=== PATIENT | male | born 1940 | race Caucasian/White ===

== ENCOUNTER 2019-09-12 09:03 | Emergency (ER) | payer OTHER ==
[2019-09-12 09:42] LABS: Absolute Lymphocytes (CBC) 1.5 K/uL (0.7-4.9); Basophils % 0.1 % (0-1.3); Hematocrit 43.7 % (39.6-49.0); Lymphocytes % 18.7 % (15.3-44.8); MPV 8.8 fL (7.6-11.3); RBC Red Blood Cell Count 4.75 M/uL (4.33-5.43)
--- NOTE | 2019-09-12 09:48 | RAD REPORT ---
EXAM DESCRIPTION: RAD - Chest Single View - 09/12/2019 9:31 am CLINICAL HISTORY: CHEST PAIN, shortness of breath COMPARISON: None TECHNIQUE: AP portable chest image was obtained 09/12/2019 9:31 am . FINDINGS: Lung volumes are low. No mass, consolidation or edema pattern. Prominence of the interstit ial pattern is being believed to be baseline. Heart and vasculature are normal. No measurable pleural effusion and no pneumothorax. No acute bony abnormality seen. No acute aortic findings suspected. IMPRESSION: No acute cardiopulmonary process.
[2019-09-12 10:05] LABS: ALT/SGPT 25 U/L (12-78); AST/SGOT 19 U/L (15-37); Albumin 3.9 g/dL (3.4-5.0); Alkaline Phosphatase 39 U/L (45-117); BUN Blood Urea Nitrogen 14 mg/dL (7-18); Bicarbonate 27 mmol/L (21-32); Bilirubin Direct 0.2 mg/dL (0-0.2); Bilirubin Total 0.7 mg/dL (0.2-1.0); Glucose Level 102 mg/dL (74-106); Magnesium 2.2 mg/dL (1.8-2.4); NT PRO-BNP 39 pg/mL (<450); Protein, Total 7.7 g/dL (6.4-8.2); Protime INR 0.97; Sodium Level 138 mmol/L (136-145); Troponin (Emerg Dept Use Only) < 0.02 ng/mL (0.0-0.045)
--- OUTSIDE RECORDS SUMMARY | 2019-09-12 10:26 | XMS REPORT | Continuity of Care Document ---
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 Medical Group Allergic Problem Active 2018-07-26 Mem oria rhinitis 6-10 22:02:27 l (disorder) Allergic 00:00: He rmann rhinitis 00 (disorder) Active 08/20/2013 Problem 07/26/2018 Data migrated from vIPtela on 08/09/14. Medical Group DDC-COLONO Diagnosis Active 2010-032011-01-26 Memoria SCOPY - 09:50:00 l 00:00: Gio DDC-COLONO 00 SCOPY Active 01/12/2011 [facility] Transient Problem Resolve 2018-07-26 M emoria ischemic d 22:02:27 l attack Gio (disorder) Transient ischemic attack (disorder) Resolved Problem 07/26/2018 Medical Group Laceration Problem Active 2018-07-26 M emoria - injury 22:02:27 l (disorder) Trell n Laceration - injury (disorder) Active Problem 07/26/2018 Medical Group Mild Problem Active 2018-07-26 Memor ia cognitive 22:02:27 l disorder Mild [place] (disorder) cognitive disorder (disorder) Active Problem 07/26/2018 Medical Group Obesity Problem Active 2018-07-26 Bud divina (disorder) 22:02:27 l Obesity [place] (disorder) Active Problem 07/26/2018 Medical Group SCREEN Diagnosis Active 2011-01-26 Mem oria MALIG 09:50:00 l NEOP-COLON SCREEN Herm andreea MALIG NEOP-COLON Active [facility] Allergies, Adverse Reactions, Alerts This patient has no known allergies or adverse reactions. Social History Social Habit Start Date Stop Date Quantity Comments Source Social History 2015-10-05 2015-10-05 Claudette covington 20:59:36 20:59:36 Medications Ordered Filled Start Stop Current Ordering Indication Dosage Frequency Signature Comments Components Source Medication Medication Date Date Medication? Clinician (SIG) Name Name Clotrimazol Yes 1 appl, Mem oria e 10 MG/ML 4-25 TOP, BID, l Topical 15:43: Right ear Tessa nn Solution 00 canal, X 10 day, # 30 mL, 0 Refill(s), Pharmacy: [facility] fluconazole Yes 200 mg = 1 Memoria 200 mg oral 4-25 tab, PO, l tablet 15:43: Daily, X Gio 00 10 day, # 10 tab, 0 Refill(s), Pharmacy: [facility] Multi Yes 0 Memoria Vitamin+ 4-25 Refill(s) l 15:29: Gio 00 Amoxicillin 2018- Yes 875 mg = 1 Memoria 875 MG / 4-10 tab, PO, l Clavulanate 12:31: Q12H, X 10 [place] 125 MG Oral 00 day, # 20 Tablet tab, 0 [Augmentin Refill(s), 875-mg] Pharmacy: [facility] Vital Signs Vital Name Observation Time Observation Value Comments Source BMI Calculated 2018-07-24 14:52:00 [facility]an Weight 2018-07-24 14:52:00 [facility] Gio Height 2018-07-24 14:52:00 175.26 cm [facility] Gio Systolic (mm Hg) 2018-07-24 14:52:00 Bud rial [place] Diastolic (mm Hg) 2018-07-24 14:52:00 Mem orial [place] Temperature Oral (F) 2018-07-24 14:52:00 98.1 F [facility] Gio Heart Rate 2018-07-24 14:52:00 [facility] Weight 2018-07-05 15:19:00 [facility] Gio BMI Calculated 2018-07-05 15:19:00 Memori al Gio Height 2018-07-05 15:19:00 175.26 cm [facility] Gio Temperature Oral (F) 2018-07-05 15:19:00 98.4 F [facility] [place] Heart Rate 2018-07-05 15:19:00 [facility] [place] Systolic (mm Hg) 2018-07-05 15:19:00 Bud rial Gio Diastolic (mm Hg) 2018-07-05 15:19:00 Mem orial Gio Systolic (mm Hg) 2018-07-04 12:12:00 Bud rial [place] Diastolic (mm Hg) 2018-07-04 12:12:00 Mem orial [place] Heart Rate 2018-07-04 12:12:00 [facility] [place] Temperature Oral (F) 2018-07-04 12:12:00 98.5 F [facility] Gio Weight 2018-07-04 12:12:00 [facility] [place] Systolic (mm Hg) 2018-06-20 12:09:00 Bud rial [place] Diastolic (mm Hg) 2018-06-20 12:09:00 Mem orial Gio Heart Rate 2018-06-20 12:09:00 [facility] Gio Temperature Oral (F) 2018-06-20 12:09:00 98.3 F [facility] Weight 2018-06-20 12:09:00 [facility] [place] Procedures Procedure Date / Time Performed Performing Clinician [facility] e Removal impacted cerumen 2018-07-05 15:49:00 Mem orial [place] requiring instrumentation, unilateral 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<sup>1</sup> Encounters Start End Encounter Admission Attending Care Care Encounter Source Date/Time Date/Time Type Type Clinicians Facility Department ID 2019-08-30 2019-08-30 KIMBER Rueda [id number] 14:39:18 14:59:18 Visit Ed Jimenez [id number] [place] [id number] [facility] [id number] nal 092 [facility] 2018-07-24 2018-07-24 Outpatient Donepudi, [facility] [id number] 10:15:00 23:59:59 Daniella 04 [facility] 2018-07-05 2018-07-05 Outpatient Hopper, [facility]MG [facility] [id number] 10:30:00 23:59:59 [facility] 2018-07-05 2018-07-05 Outpatient Hopper, MHMG [facility] [id number] 10:30:00 23:59:59 [facility] 2018-07-04 2018-07-05 Outpatient MHMG [facility] [id number] 08:18:00 23:59:59 2018-07-04 2018-07-05 Outpatient MHMG [facility] [id number] 08:18:00 23:59:59 2018-07-04 2018-07-04 Outpatient Hopper, [facility]MG [facility] [id number] 07:15:00 23:59:59 Kirt 2018-06-20 2018-06-20 Outpatient Hopper, MH[facility] [id number] 07:00:00 23:59:59 Kirt Results This patient has no known results.
--- OUTSIDE RECORDS SUMMARY | 2019-09-12 10:26 | XMS REPORT | Continuity of Care Document ---
:1940 Author Organization [facility] Care Team Providers Name Role Phone [facility] Unavailable Un available Problems Problem Status Onset Classification Date Comments Sourc e Date Reported Impotence of Active 01/28/20 Problem 07/26/2018 Data migrated Medical organic origin 14 from [facility] (disorder) Centricity on 08/09/14. Allergic Active 08/21/19 Problem 07/26/2018 Data migrated Me dical rhinitis 14 from [facility] (disorder) Centricity on 08/09/14. DDC-COLONOSCOP [place]13[place] [address] [place] [address] Center Laceration - Active Problem 07/26/2018 Med ical injury Group (disorder) Mild cognitive Active Problem 07/26/2018 M edical disorder Group (disorder) Obesity Active Problem 07/26/2018 Medica l (disorder) Group Transient Resolved Problem 07/26/2018 Medica l ischemic Group attack (disorder) [place]IG [place] [facility] Medications Medication Details Route Status Patient Ordering Order Source Instructions Provider Date Clotrimazole 10 1 appl, Active MH MG/ML Topical TOP, BID, 019 Medical Solution Right ear Group canal, X 10 day, # 30 mL, 0 Refill(s), Pharmacy: [facility] 5246 fluconazole 200 200 mg = 1 Active MH mg oral tablet tab, PO, 019 Medical Daily, X 10 Group day, # 10 tab, 0 Refill(s), Pharmacy: [facility]246 Multi Vitamin+ 0 Refill(s) Active MH 019 Medical Group Amoxicillin 875 875 mg = 1 Active MH MG / tab, PO, 019 Medical Clavulanate 125 Q12H, X 10 Group MG Oral Tablet day, # 20 [Augmentin tab, 0 875-mg] Refill(s), Pharmacy: [facility] Allergies, Adverse Reactions, Alerts No Known Medication Allergies Immunizations Immunization Date Site Status Last Comments Source Given Updated diphtheria/pertu Left completed GE Result Medical ssis, 4 Deltoid Comment: Group acel/tetanus adacel adult<sup>1</sup [[id number]]. > Migrated from OBS ; Data migrated from iPipelinety on 04/14/2015. Results No Data Provided for This Section Pathology Reports No Data Provided for This Section Diagnostic Reports No Data Provided for This Section Consultation Notes No Data Provided for This Section Discharge Summaries No Data Provided for This Section History and Physicals No Data Provided for This Section Vital Signs Vital Sign Value Date Comments Source BMI Calculated 23.83 07/24/2018 Medical Gr oup Weight 73.182 07/24/2018 Medical Grou p Height 175.26 cm 07/24/2018 Medical Grou p Systolic (mm Hg) 130 07/24/2018 Medical Group Diastolic (mm Hg) 77 07/24/2018 Medical Group Temperature Oral (F) 98.1 F 07/24/2018 Medi kelly Group Heart Rate 72 07/24/2018 Medical Grou p Weight 72 07/05/2018 Medical Grou p BMI Calculated 23.44 07/05/2018 Medical Gr oup Height 175.26 cm 07/05/2018 Medical Grou p Temperature Oral (F) 98.4 F 07/05/2018 Medi kelly Group Heart Rate 70 07/05/2018 Medical Grou p Systolic (mm Hg) 124 07/05/2018 Medical Group Diastolic (mm Hg) 76 07/05/2018 Medical Group Systolic (mm Hg) 132 07/04/2018 Medical Group Diastolic (mm Hg) 84 07/04/2018 Medical Group Heart Rate 76 07/04/2018 Medical Grou p Temperature Oral (F) 98.5 F 07/04/2018 Medi kelly Group Weight 72.273 07/04/2018 Medical Grou p Systolic (mm Hg) 134 06/20/2018 Medical Group Diastolic (mm Hg) 77 06/20/2018 Medical Group Heart Rate 65 06/20/2018 Medical Grou p Temperature Oral (F) 98.3 F 06/20/2018 Medi kelly Group Weight 72.273 06/20/2018 Medical Grou p Encounters Location Location Encounter Encounter Reason Attending ADM DC Stat us Source Details Type Number For Provider Date Date Visit [facility] Outpatient [id number] DDQuita-COL HOANG 01/26 Acti ve [facility] Medical 0 ONOSCOP [facility] Outpatient [id number] [facility]20 [id number] 06/20 06/21 Medicine 1 [facility] [place] [facility] [id number] [facility] 07/04 Active [facility] 2 [facility] Family Outpatient [id number] [facility] 07/04 07/05 Medicine 2 [facility] [place] [facility] Family Phone [id number] 07/04 07/06 Medicine Message [id number] [facility] 3 [facility] Outpatient [id number] [facility] 07/05 07/06 Otolaryngol 3 Medic al [facility] Outpatient [id number] Sreekrishna 07/24 Act reji [facility] 4 [facility] Outpatient [id number] Sreekrishna 07/24 07/25 Otolaryngol 4 Med ical ogy [facility] Procedures Procedure Code Date Perfomer Comments Source Removal impacted 47745 07/05/2018 Medic al cerumen requiring Group instrumentation, unilateral Excision of [id number] X2 Medical squamous cell Group carcinoma<sup>1</ sup> Assessment and Plan No Data Provided for This Section Plan of Care No Data Provided for This Section Social History Social History Date Source Social History TypeResponse 10/05/2015 Medical [facility] Substance Abuse Use: None. 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 Highest education level: Some college. Alcohol Current, Type Liquor. Frequency: 1-2 ti mes per year. Alcohol use interferes with work or home: No. Drinks more than intended: No. Others hurt by drinking: No. Household alcohol concerns: No. Smoking Status Never smoker; Exposure to Tobacco Smoke None; Cigarette Smoking Last 365 Days No; Reg Smoking Cessation Counseling No entered on: 07/24/18 Family History No Data Provided for This Section Advance Directives No Data Provided for This Section Functional Status No Data Provided for This Section
--- OUTSIDE RECORDS SUMMARY | 2019-09-12 10:27 | XMS REPORT | Summary of Care ---
:[address] [facility] Address [address] [place] [address] Care Team Providers Name Role Phone Eamon Mikhail Borges Primary Care Provider Reason for Visit Reason Comments Rx Concern/Question Encounter Details Date Type Department Care Team Description 06/25/2019 Telephone [facility] Ed Goyal, Rx Con cern/Question Neurology-Tony SHAFER [address] [place] [address], [address] [place] [address]. [address] [place] [phone] Allergies No Known Allergiesdocumented as of this encounter (statuses as of 06/25/2019) Medications Medication Sig Dispensed Refills Start Date End Date Status galantamine 8 mg Take 1 tablet by 60 tablet 1 05/10/2019 Active tabletIndications: Late mouth 2 (two) onset Alzheimer's times daily. disease without behavioral disturbance divalproex 125 mg EC Take 1 tablet by 30 tablet 1 05/10/2019 Active tabletIndications: Late mouth daily. onset Alzheimer's disease without behavioral disturbance mirtazapine 7.5 mg Take 1 tablet by 30 tablet 1 06/25/2019 Active tablet mouth at bedtime. documented as of this encounter (statuses as of 06/25/2019) Active Problems Not on filedocumented as of this encounter (statuses as of 06/25/2019) Social History Tobacco Use Types Packs/Day Years Used Date Never Assessed Sex Assigned at Date Recorded Not on file Job Start Date Occupation Industry Not on file Not on file Not on file Travel History Travel Start Travel End No recent travel history available. documented as of this encounter Last Filed Vital Signs Not on filedocumented in this encounter Plan of Treatment Health Maintenance Due Date Last Done Comments DTaP,Tdap,and Td Vaccines (1 - Tdap) 1951 Zoster Recombinant Vaccine (SHINGRIX) (1 of 2) 1992 Medicare Wellness Visit 09/15/2007 PNEUMOCOCCAL VACCINES 65+ (1 of 2 - PCV13) 09/15/2007 INFLUENZA VACCINE (#1) 2018 documented as of this encounter Results Not on filedocumented in this encounter Insurance Payer Benefit Plan / Subscriber ID Effective Phone Address T ype Group Dates [facility] [id number] 2019-Pres Medic are Adv HEALTHCARE - HEALTHCARE ent PPO MANAGED MEDICARE GOLD MEDICARE [employer] - CHOICE CARE [id number] 2018-Prese Med icare Adv MANAGED nt PPO MEDICARE documented as of this encounter
--- OUTSIDE RECORDS SUMMARY | 2019-09-12 10:27 | XMS REPORT | Summary of Care ---
:1940 Author Organization [facility] Address [address] [place] [address] Care Team Providers Name Role Phone Eamon Mikhail A Primary Care Provider Reason for Visit Reason Comments Assessment Dizziness Encounter Details Date Type Department Care Team Description 06/26/2019 Telephone [facility] Ed Goyal, Assess ment; Dizziness Neurology-[address], [address] [place] [phone] Allergies No Known Allergiesdocumented as of this encounter (statuses as of 06/26/2019) Medications Medication Sig Dispensed Refills Start Date [...] as of this encounter (statuses as of 06/26/2019) Active Problems Not on filedocumented as of this encounter (statuses as of 06/26/2019) Social History Tobacco Use Types Packs/Day Years [...] / Subscriber ID Effective Phone Address T e Group Dates [facility] [id number] 2019-Pres Medic are Adv HEALTHCARE - HEALTHCARE ent PPO MANAGED MEDICARE [employer] [facility] MEDICARE [employer] - CHOICE CARE [id number] 2018-Prese Med icare Adv MANAGED nt PPO MEDICARE documented as of this encounter
--- OUTSIDE RECORDS SUMMARY | 2019-09-12 10:27 | XMS REPORT | Summary of Care ---
:1940 Author Organization [facility] Address [address] [place] [address] Care Team Providers Name Role Phone Eamon Mikhail A Primary Care Provider Reason for Visit Reason Comments Assessment Dizziness Encounter Details Date Type Department Care Team Description 06/26/2019 Telephone [facility] Ed Goyal, Assess ment; Dizziness Neurology-[address], [address] [place] [phone] Allergies No Known Allergiesdocumented [...] Effective Phone Address T e Group Dates [facility] [id number] 2019-Pres Medic are Adv HEALTHCARE - HEALTHCARE ent PPO MANAGED MEDICARE [facility] MEDICARE [employer] - CHOICE CARE [id number] 2018-Prese Med icare Adv MANAGED nt PPO MEDICARE documented as of this encounter
--- OUTSIDE RECORDS SUMMARY | 2019-09-12 10:27 | XMS REPORT | Summary of Care ---
:1940 Author Organization [facility] Address [address] [place] [address] Care Team Providers Name Role Phone Eamon Mikhail A Primary Care Provider Reason for Visit Reason Comments Assessment Dizziness Encounter Details Date Type Department Care Team Description 06/26/2019 Telephone [facility] Ed Goyal, Assess ment; Dizziness Neurology-[address] [place] [phone] Allergies No Known Allergiesdocumented as of this encounter (statuses as of 06/28/2019) Medications Medication Sig Dispensed Refills Start Date [...] as of this encounter (statuses as of 06/28/2019) Active Problems Not on filedocumented as of this encounter (statuses as of 06/28/2019) Social History Tobacco Use Types Packs/Day Years [...] Effective Phone Address T e Group Dates [facility] [id number] 2019-Pres Medic are Adv HEALTHCARE - HEALTHCARE ent PPO MANAGED MEDICARE [facility] MEDICARE [employer] - CHOICE CARE [id number] 2018-Prese Med icare Adv MANAGED nt PPO MEDICARE documented as of this encounter
--- OUTSIDE RECORDS SUMMARY | 2019-09-12 10:28 | XMS REPORT | Summary of Care ---
:1940 Author Organization [facility] Address [address] [place] [address] Care Team Providers Name Role Phone Mikhail Knutson Primary Care Provider Reason for Visit Reason Comments Follow-up memory Encounter Details Date Type Department Care Team Description 08/30/2019 Office Visit [facility] Ed Goyal Late onset A lzheimer's disease with behavioral disturbance (Primary Dx); Neurology-Tony Terrazas MD [address], [address] [place] [phone] Allergies Active Allergy Reactions Severity Noted Date Comments Galantamine Anaphylaxis, Dizziness High 08/30/2019 documented as of this encounter (statuses as of 09/10/2019) Medications Medication Sig Dispensed Refills Start Date [...] as of this encounter (statuses as of 09/10/2019) Active Problems Not on filedocumented as of this encounter (statuses as of 09/10/2019) Social History Tobacco Use Types Packs/Day Years Used Date Never Smoker Smokeless Tobacco: Never Used Sex Assigned at Date Recorded Not on file Job Start Date Occupation Industry Not on file Not on file Not on file Travel History Travel Start Travel End No recent travel history available. documented as of this encounter Last Filed Vital Signs Vital Sign Reading Time Taken Comments Blood Pressure 122/64 08/30/2019 2:55 PM CDT Pulse 101 08/30/2019 2:55 PM CDT Temperature 36.7 C (98 F) 08/30/2019 2:55 PM CDT Respiratory Rate 18 08/30/2019 2:55 PM CDT Oxygen Saturation - - Inhaled Oxygen Concentration - - Weight 74.4 kg (164 lb) 08/30/2019 2:55 PM CDT Height 175.3 cm (5' 9") 08/30/2019 2:55 PM CDT Body Mass Index 24.22 08/30/2019 2:55 PM CDT documented in this encounter Progress Notes Ed Goyal MD - 08/30/2019 2:40 PM CDT HISTORY OF PRESENT ILLNESS: Thien Phan is a 78 year old male. Chief complaint: Dementia and sundowning. History: The patient has not been able to tolerate the anti-dementia medications. One of the complaints had been dizziness. In order to try and control moods, we had utilize Depakote as well but it didnot seem to do anything for him and so his who is with him and does most of the talking had stopped giving it to him. The dizziness issue was attributed to the galantamine, and so he is not takingthat either. There is a lot of trouble with increasing agitation and insomnia more in the evenings. The patient does tend to fall asleep during the daytime. Past Medical History: No significant problems. Allergies: No allergy. Family History: Maternal/Paternal grandparents: No data was provided by the patient. Aunts/uncles(maternal/paternal): Paternal aunts with cancer. Mother/Father: Father suffered with heart disease. Mother suffered with cancer. Broth ers/Sisters: No data was provided by the patient. Children/Other: No data was provided by the patient. Surgeries: No surgery. Social history: The patient is , he is retired. He occasionally willhave a drink of alcohol but he does not use tobacco products. Current Outpatient Medications: mirtazapine 7.5 mg tablet, Take 1 tablet by mouth at bedtime., Disp: 30 tablet, Rfl: 1 divalproex 125 mg EC tablet, Take 1 tablet by mouth daily., Disp: 30 tablet, Rfl: 1 galantamine 8 mg tablet, Take 1 tablet by mouth 2 (two) times daily., Disp: 60 tablet, Rfl: 1 Social History Socioeconomic History Marital status: Spouse name: Not on file Number of children: Not on file Years of education: Not on file Highest education level: Not on file Occupational History Not on file Social Needs Financial resource strain: Not on file Food insecurity: Worry: Not on file Inability: Not on file Transportation needs: Medical: Not on file Non-medical: Not on file Tobacco Use Smoking status: Never Smoker Smokeless tobacco: Never Used Substance and Sexual Activity Alcohol use: Not on file Drug use: Not on file Sexual activity: Not on file Lifestyle Physical activity: Days per week: Not on file Minutes per session: Not on file Stress: Not on file Relationships Social connections: Talks on phone: Not on file Gets together: Not on file Attends buddhist service: Not on file Active member of club or organization: Not on file Attends meetings of clubs or organizations: Not on file Relationship status: Not on file Intimate partner violence: Fear of current or ex partner: Not on file Emotionally abused: Not on file Physically abused: Not on file Forced sexual activity: Not on file Other Topics Concern Not on file Social History Narrative Not on file Vital signs: BP 122/64 (BP Location: Left arm, Patient Position: Sitting, BP CUFF SIZE: Adult Medium) | Pulse 101 | Temp 36.7 C (98 F) (Oral) | Resp 18 | Ht 5' 9" (1.753 m) | Wt 164 lb (74.4 kg) | BMI 24.22 kg/m General findings: EOMI/VFFTC/PERRL, no facial asymmetry, no new focal weakness of arms, UE tone unchanged, no new focal weakness of legs, LE tone unchanged, no tremors, no ataxia, normal gait, normal station, light/sharp touch arms/legs intact. The patient is cooperative during the examination and he did appear to be his stated age. Obvious short term memory loss. Limited insight/judgement. ASSESSMENT AND RECOMMENDATIONS: ICD-10-CM ICD-9-CM 1. Late onset Alzheimer's disease with behavioral disturbance G30.1 331.0 F02.81 294.11 2. Sundowning F05 [id number] Impression: I did tell the that she was going to have to keep him awake during the day so he would settle in at night. I also did tell her that a neuroleptic, Serequel was available to help him settle at night although this is an off label use according to the FDA. She is going to try melatonin with him and see if that helps. If she wants to utilize the medication mirtazapine and an increased dose, this is also a possibility. She is otherwise going to keep the office posted concerning his progress. Creation of the note was aided by utilizing a cut/paste operation of text from a Microsoft Word template created with [employer]. The text was dictated into the template via [employer]. documented in this encounter Plan of Treatment Health Maintenance Due Date Last Done Comments DTaP,Tdap,and Td Vaccines (1 - Tdap) 1953 Zoster Recombinant Vaccine (SHINGRIX) (1 of 2) 1992 Medicare Wellness Visit 09/15/2007 PNEUMOCOCCAL VACCINES 65+ (1 of 2 - PCV13) 09/15/2007 INFLUENZA VACCINE (Season Ended) 2019 Depression Screening 05/10/2020 05/10/2019 documented as of this encounter Results Not on filedocumented in this encounter Visit Diagnoses Diagnosis Late onset Alzheimer's disease with beha vioral disturbance - Primary Sundowning Reactive confusion documented in this encounter Insurance Payer Benefit Plan Subscriber ID Effective Dates Phone Address Type / Group [employer] - CHOICE CARE [id number] 2018-Flora allen Adv MANAGED t PPO MEDICARE documented as of this encounter
--- OUTSIDE RECORDS SUMMARY | 2019-09-12 10:28 | XMS REPORT | Summary of Care ---
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, [address] [place] [phone] Allergies Active Allergy Reactions [...] file Gets together: Not on file Attends mandaeism service: Not on file Active member of [...] G30.1 331.0 F02.81 294.11 2. Sundowning F05 [id number] Impression: I did tell the that she [...] from a Microsoft Word template created with [employer]. The text was dictated into the template via [employer] Naturally Speaking. documented in this encounter Plan [...] Type / Group [employer] - CHOICE CARE [id number] 2018-Flora allen Adv MANAGED t PPO MEDICARE documented as of this encounter
--- NOTE | 2019-09-12 12:18 | ER ---
Nurse's Notes [facility] Name: Thien Phan Jr Age: 78 yrs Sex: Male : 1940 Arrival Date: 09/12/2019 Time: 09:15 Bed 7 Private MD: Diagnosis: Chest pain, unspecified;Palpitations Presentation: 09/11 09:16 Chief complaint: Patient states: chest pain and SOB while riding in the car. Risk sv Assessment: Do you want to hurt yourself or someone else? Patient reports no desire to harm self or others. Onset of symptoms was September 12, 2019. 09:16 Method Of Arrival: Wheelchair sv 09:16 Acuity: MIRIAM 2 sv 09:16 Coronavirus screen: Proceed with normal triage. Patient denies a cough. Patient denies dm5 shortness of breath or difficulty breathing. Patient denies measured and/or subjective temperature greater than 100.4F prior to today's visit. Patient denies travel on a cruise ship or to a country the [facility] currently lists as an affected area. Patient denies contact with known and/or suspected case of COVID-19. Ebola Screen: Patient negative for fever greater than or equal to 101.5 degrees Fahrenheit, and additional compatible Ebola Virus Disease symptoms Patient denies exposure to infectious person. Patient denies travel to an Ebola-affected area in the 21 days before illness onset. No symptoms or risks identified at this time. Initial Sepsis Screen: Does the patient meet any 2 criteria? No. Patient's initial sepsis screen is negative. Does the patient have a suspected source of infection? No. Patient's initial sepsis screen is negative. Triage Assessment: 09:20 General: Appears in no apparent distress. uncomfortable, Behavior is cooperative, bp appropriate for age, anxious. Pain: Complains of pain in chest. EENT: No deficits noted. Neuro: No deficits noted. Cardiovascular: Rhythm is sinus tachycardia. Respiratory: Reports shortness of breath. GI: No signs and/or symptoms were reported involving the gastrointestinal system. : No signs and/or symptoms were reported regarding the genitourinary system. Derm: No deficits noted. Musculoskeletal: No deficits noted. 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 - Social history:: Smoking status: Patient denies any tobacco usage or history of. Screenin:20 Abuse screen: Denies threats or abuse. Denies injuries from another. Nutritional bp screening: No deficits noted. Tuberculosis screening: No symptoms or risk factors identified. Fall Risk None identified. Assessment: 09:20 General: SEE TRIAGE NOTE. bp 11:32 Reassessment: Repeat troponin sent to lab. sv 12:03 Reassessment: Patient appears in no apparent distress at this time. Patient and/or rb1 family updated on plan of care and expected duration. Pain level reassessed. Patient is alert, oriented x 3, equal unlabored respirations, skin warm/dry/pink. at the bedside. 12:29 Reassessment: PT D/C HOME AMBULATORY WITH FAMILY, DX WITH NONSPECIFIC CHEST PAIN. bp Vital Signs: 09:16 BP 155 / 82; Pulse 109; Resp 22; Pulse Ox 95% ; sv 09:54 Temp 98.1; dm5 10:00 BP 91 / 71; Pulse 97; Resp 46; Pulse Ox 93% on 15% Nebulizer Mask; bp 11:00 BP 132 / 64; Pulse 64; Resp 22; Pulse Ox 98% ; rb1 12:00 BP 141 / 76; Pulse 72; Resp 19; Pulse Ox 97% ; rb1 ED Course: 09:15 Patient arrived in ED. bp 09:17 Triage completed. sv 09:17 Arm band placed on. sv 09:19 Yannick Hart MD is Attending Physician. kdr 09:20 Patient has correct armband on for positive identification. Bed in low position. Call bp light in reach. Side rails up X2. front desk monitor on. Pulse ox on. NIBP on. 09:25 Inserted saline lock: 20 gauge in right forearm, using aseptic technique. ,using sv aseptic technique. done by Marnie Collins RN Blood collected. 09:32 XRAY Chest (1 view) In Process Unspecified. EDMS 09:52 Román Abreu, ISMA is Primary Nurse. bp 12:29 No provider procedures requiring assistance completed. IV discontinued, intact, bp bleeding controlled, No redness/swelling at site. Pressure dressing applied. Patient maintains SpO2 saturation greater than 95% on room air. Administered Medications: No medications were administered Outcome: 12:17 Discharge ordered by . kdr 12:29 Discharged to home ambulatory, with family. bp 12:29 Condition: stable 12:29 Discharge instructions given to patient, family, Instructed on discharge instructions, follow up and referral plans. Demonstrated understanding of instructions, follow-up care. 12:38 Patient left the ED. rb1 Signatures: Dispatcher [employer] EDMarnie Yoon, RN RN dm5 Florencia Hodge RN RN sv Yannick Hart MD MD kdr Barber, Rebecca, RN RN rb1 Román Abreu RN RN bp
--- NOTE | 2019-09-12 12:18 | EDPHYS ---
Physician Documentation [facility] Name: Thien Phan Jr Age: 78 yrs Sex: Male : 1940 Arrival Date: 09/12/2019 Time: 09:15 Bed 7 Private MD: ED Physician Yannick Hart HPI: 09/11 17:59 This 78 yrs old Male presents to ER via Wheelchair with complaints of Chest kdr Pain. 17:59 The patient or guardian reports chest pain that is located primarily in the anterior kdr chest wall. Onset: suddenly, just prior to arrival. The pain does not radiate. Associated signs and symptoms: The patient has no apparent associated signs or symptoms. The chest pain is described as a pressure. Duration: The patient or guardian reports a single episode, that is now resolved. Modifying factors: The symptoms are alleviated by nothing. the symptoms are aggravated by nothing. Severity of pain: At its worst the pain was moderate in the emergency department the pain has resolved. The patient has experienced similar episodes in the past, a few times. 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 - Social history:: Smoking status: Patient denies any tobacco usage or history of. ROS: 17:59 Constitutional: Negative for fever, chills, and weight loss, Eyes: Negative for injury, kdr pain, redness, and discharge, Neck: Negative for injury, pain, and swelling, Respiratory: Negative for shortness of breath, cough, wheezing, and pleuritic chest pain, Abdomen/GI: Negative for abdominal pain, nausea, vomiting, diarrhea, and constipation, Back: Negative for injury and pain, : Negative for injury, bleeding, discharge, and swelling, MS/Extremity: Negative for injury and deformity, Skin: Negative for injury, rash, and discoloration, Neuro: Negative for headache, weakness, numbness, tingling, and seizure activity. Psych: Negative for depression, anxiety, suicide ideation, homicidal ideation, and hallucinations, Allergy/Immunology: Negative for hives, rash, and allergies, Endocrine: Negative for neck swelling, polydipsia, polyuria, polyphagia, and marked weight changes, Hematologic/Lymphatic: Negative for swollen nodes, abnormal bleeding, and unusual bruising. 17:59 Cardiovascular: Positive for chest pain, with movement, Negative for edema, orthopnea, palpitations, paroxysmal nocturnal dyspnea, acute changes. Exam: 09:33 ECG was reviewed by the Attending Physician. kdr 17:59 Constitutional: This is a well developed, well nourished patient who is awake, alert, kdr and in no acute distress. Head/Face: Normocephalic, atraumatic. Eyes: Pupils equal round and reactive to light, extra-ocular motions intact. Lids and lashes normal. Conjunctiva and sclera are non-icteric and not injected. Cornea within normal limits. Periorbital areas with no swelling, redness, or edema. Neck: Trachea midline, no thyromegaly or masses palpated, and no cervical lymphadenopathy. Supple, full range of motion without nuchal rigidity, or vertebral point tenderness. No Meningismus. Chest/axilla: Normal chest wall appearance and motion. Nontender with no deformity. No lesions are appreciated. Cardiovascular: Regular rate and rhythm with a normal S1 and S2. No gallops, murmurs, or rubs. Normal PMI, no JVD. No pulse deficits. Respiratory: Lungs have equal breath sounds bilaterally, clear to auscultation and percussion. No rales, rhonchi or wheezes noted. No increased work of breathing, no retractions or nasal flaring. Abdomen/GI: Soft, non-tender, with normal bowel sounds. No distension or tympany. No guarding or rebound. No evidence of tenderness throughout. Back: No spinal tenderness. No costovertebral tenderness. Full range of motion. Skin: Warm, dry with normal turgor. Normal color with no rashes, no lesions, and no evidence of cellulitis. MS/ Extremity: Pulses equal, no cyanosis. Neurovascular intact. Full, normal range of motion. Neuro: Awake and alert, GCS 15, oriented to person, place, time, and situation. Cranial nerves II-XII grossly intact. Motor strength 5/5 in all extremities. Sensory grossly intact. Cerebellar exam normal. Normal gait. Psych: Awake, alert, with orientation to person, place and time. Behavior, mood, and affect are within normal limits. Vital Signs: 09:16 BP 155 / 82; Pulse 109; Resp 22; Pulse Ox 95% ; sv 09:54 Temp 98.1; dm5 10:00 BP 91 / 71; Pulse 97; Resp 46; Pulse Ox 93% on 15% Nebulizer Mask; bp 11:00 BP 132 / 64; Pulse 64; Resp 22; Pulse Ox 98% ; rb1 12:00 BP 141 / 76; Pulse 72; Resp 19; Pulse Ox 97% ; rb1 MDM: 12:17 Patient medically screened. kdr 17:59 Data reviewed: vital signs, nurses notes, lab test result(s), EKG, radiologic studies. kdr Counseling: I had a detailed discussion with the patient and/or guardian regarding: the historical points, exam findings, and any diagnostic results supporting the discharge/admit diagnosis, lab results, radiology results, the need for outpatient follow up. 09/11 09:20 Order name: Basic Metabolic Panel; Complete Time: 10:45 09/11 09:20 Order name: CBC with Diff; Complete Time: 10:45 09/11 09:20 Order name: LFT's; Complete Time: 10:45 09/11 09:20 Order name: Magnesium; Complete Time: 10:45 09/11 09:20 Order name: NT PRO-BNP; Complete Time: 10:45 09/11 09:20 Order name: PT-INR; Complete Time: 10:45 09/11 09:20 Order name: Troponin (emerg Dept Use Only); Complete Time: 10:45 09/11 09:20 Order name: XRAY Chest (1 view); Complete Time: 10:45 09/11 09:20 Order name: EKG; Complete Time: 09:21 09/11 09:20 Order name: Cardiac monitoring; Complete Time: 10:09/11 09:20 Order name: EKG - Nurse/Tech; Complete Time: 10:09/11 09:20 Order name: IV Saline Lock; Complete Time: 10:09/11 09:20 Order name: Labs collected and sent; Complete Time: 10:09/11 11:24 Order name: Troponin (emerg Dept Use Only); Complete Time: 12:01 kdr 09/11 09:20 Order name: O2 Per Protocol; Complete Time: 10:02 sv 09/11 09:20 Order name: O2 Sat Monitoring; Complete Time: 10:02 sv EC:33 Rate is 69 beats/min. Rhythm is regular, Normal Sinus Rhythm with No ectopy. QRS [place] kdr is Normal. DE interval is normal. QRS interval is normal. Clinical impression: Normal ECG and NSR w/ Non-specific ST/T Changes. Administered Medications: No medications were administered Disposition: 09/12/19 12:17 Discharged to Home. Impression: Chest pain, unspecified, Palpitations. - Condition is Stable. - Discharge Instructions: Nonspecific Chest Pain, [id number], Palpitations, Rdwh-[id number]. - Medication Reconciliation Form, Thank You Letter form. - Follow up: Private Physician; When: 2 - 3 days; Reason: If symptoms return, Further diagnostic work-up, Recheck today's complaints, Continuance of care, Re-evaluation by your physician. - Problem is new. - Symptoms are resolved. Signatures: Dispatcher [employer] EDME Marnie Willis RN RN dmFlorencia Edwards RN RN sv Yannick Hart MD MD kdr Ariadne Youssef, RN RN rb1 Román Abreu RN RN bp Corrections: (The following items were deleted from the chart) 12:38 12:17 09/12/2019 12:17 Discharged to Home. Impression: Chest pain, unspecified; rb1 Palpitations. Condition is Stable. Forms are Medication Reconciliation Form, Thank You Letter, Antibiotic Education, Prescription Opioid Use. Follow up: Private Physician; When: 2 - 3 days; Reason: If symptoms return, Further diagnostic work-up, Recheck today's complaints, Continuance of care, Re-evaluation by your physician. Problem is new. Symptoms are resolved. kdr
[2019-09-12 12:51] VITALS: TEMP 98.1
[2019-09-12 12:55] VITALS: BP 141/76; O2SAT 97
== END 2019-09-12 12:38 | disposition home or self-care (01) ==
LOC: ER 09:03
DX: R07.9 Chest pain, unspecified (principal); R00.2 Palpitations
CPT/HCPCS: 36415; 71045; 80048; 80076; 83735; 83880; 84484; 85025; 85610; 93005; 99285

== ENCOUNTER 2020-01-20 13:34 | Emergency (ER) | payer OTHER ==
--- OUTSIDE RECORDS SUMMARY | 2020-01-20 13:42 | XMS REPORT | Continuity of Care Document ---
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 Allergic Active 08/21/19 Problem 07/26/2018 Data migrated Me dical rhinitis 14 from [employer] [facility] (disorder) Centricity on 08/09/14. 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 5246 fluconazole 200 200 mg = 1 Active MH mg oral tablet tab, PO, 019 Medical Daily, X 10 Group day, # 10 tab, 0 Refill(s), Pharmacy: [facility]246 Multi Vitamin+ 0 Refill(s) Active MH 019 Medical Group Amoxicillin 875 875 mg = 1 Active MH MG / tab, PO, 019 Medical Clavulanate 125 Q12H, X 10 Group MG Oral Tablet day, # 20 [Augmentin tab, 0 875-mg] Refill(s), Pharmacy: [facility]246 Allergies, Adverse Reactions, Alerts No Known Medication Allergies Immunizations Immunization Date Site Status Last Comments Source Given Updated diphtheria/pertu Left completed GE Result Medical ssis, 4 Deltoid Comment: Group acel/tetanus adacel adult<sup>1</sup [[id number]]. > Migrated from OBS ; Data migrated from [employer] on 04/14/2015. Results No Data Provided for [...] Type Number For Provider Date Date Visit [facility] Outpatient [id number] DDQuita-COL HOANG 01/26 Acti ve [facility] Medical 0 ONOSCOP [facility] Outpatient [id number] [facility] 06/20 [facility] [id number] [facility] 06/20 06/21 Medicine 1 Medical [facility] Outpatient [id number] [facility] 07/04 Active [facility] 2 [facility] Outpatient [id number] [facility] 07/04 07/05 Medicine 2 Medical [employer] [facility] Family Phone [phone] 07/04 07/06 Medicine Message Medical [employer] [facility] [id number] [facility] 3 [facility] Outpatient [id number] [facility] 07/05 07/06 Otolaryngol 3 Medic al [facility] [employer] [facility] Outpatient [id number] Sreekrishna 07/24 Act reji [facility] 4 [facility] Outpatient [id number] Sreekrishna 07/24 07/25 Otolaryngol 4 Med ical ogy [employer] [facility] Procedures Procedure Code Date Perfomer Comments Source Removal impacted [id number] 07/05/2018 Medic al cerumen requiring Group instrumentation, unilateral 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
--- OUTSIDE RECORDS SUMMARY | 2020-01-20 13:42 | XMS REPORT | Continuity of Care Document ---
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 [facility] Allergic Problem Active 2018-07-26 Mem oria rhinitis 6-10 22:02:27 l (disorder) Allergic 00:00: Shar rmann rhinitis 00 (disorder) Active 08/20/2013 Problem 07/26/2018 Data migrated from [facility] on 08/09/14. [facility] DDC-COLONO Diagnosis Active 2010-032011-01-26 Memoria SCOPY - 09:50:00 l 00:00: Gio DDC-COLONO 00 SCOPY Active 01/12/2011 [facility] Transient Problem Resolve 2018-07-26 M emoria ischemic d 22:02:27 l attack Gio (disorder) Transient ischemic attack (disorder) Resolved Problem 07/26/2018 [facility] Laceration Problem Active 2018-07-26 M emoria - injury 22:02:27 l (disorder) Terll n Laceration - injury (disorder) Active Problem 07/26/2018 [facility] Mild Problem Active 2018-07-26 Memor ia cognitive 22:02:27 l disorder Mild Gio (disorder) cognitive disorder (disorder) Active Problem 07/26/2018 [facility] Obesity Problem Active 2018-07-26 Bud divina (disorder) 22:02:27 l Obesity [place] (disorder) Active Problem 07/26/2018 [facility] SCREEN Diagnosis Active 2011-01-26 Mem oria MALIG 09:50:00 l NEOP-COLON SCREEN Herm andreea MALIG NEOP-COLON Active [facility] Allergies, Adverse Reactions, Alerts [...] day, # 30 mL, 0 Refill(s), Pharmacy: [facility] fluconazole Yes 200 mg = 1 Memoria 200 mg oral 4-25 tab, PO, l tablet 15:43: Daily, X [place] 00 10 day, # 10 tab, 0 Refill(s), Pharmacy: [facility] Multi Yes 0 Memoria Vitamin+ 4-25 Refill(s) l 15:29: [place] 00 Amoxicillin 2018- Yes 875 mg = 1 Memoria 875 MG / 4-10 tab, PO, l Clavulanate 12:31: Q12H, X 10 Gio 125 MG Oral 00 day, # 20 Tablet tab, 0 [Augmentin Refill(s), 875-mg] Pharmacy: [facility] 52 Vital Signs Vital Name Observation Time Observation Value Comments Source BMI Calculated 2018-07-24 14:52:00 [facility] 2018-07-24 14:52:00 [facility] Height 2018-07-24 14:52:00 175.26 cm [facility] Systolic (mm Hg) 2018-07-24 14:52:00 Bud rial [place] Diastolic (mm Hg) 2018-07-24 14:52:00 Mem orial [place] Temperature Oral (F) 2018-07-24 14:52:00 98.1 F [facility] [place] Heart Rate 2018-07-24 14:52:00 [facility] Weight 2018-07-05 15:19:00 [facility] BMI Calculated 2018-07-05 15:19:00 Memori al [place] Height 2018-07-05 15:19:00 175.26 cm [facility] Temperature Oral (F) 2018-07-05 15:19:00 98.4 F [facility] [place] Heart Rate 2018-07-05 15:19:00 [facility] Systolic (mm Hg) 2018-07-05 15:19:00 Bud rial [place] Diastolic (mm Hg) 2018-07-05 15:19:00 Mem orial [place] Systolic (mm Hg) 2018-07-04 12:12:00 Bud rial [place] Diastolic (mm Hg) 2018-07-04 12:12:00 Mem orial [place] Heart Rate 2018-07-04 12:12:00 [facility] Gio Temperature Oral (F) 2018-07-04 12:12:00 98.5 F [facility] [place] Weight 2018-07-04 12:12:00 [facility] [place] Systolic (mm Hg) 2018-06-20 12:09:00 Bud rial [place] Diastolic (mm Hg) 2018-06-20 12:09:00 Mem orial [place] Heart Rate 2018-06-20 12:09:00 [facility]io Temperature Oral (F) 2018-06-20 12:09:00 98.3 F [facility] [place] Weight 2018-06-20 12:09:00 [facility] Procedures Procedure Date / Time Performed Performing Clinician [facility] e Removal impacted cerumen 2018-07-05 15:49:00 Mem orial [place] requiring instrumentation, unilateral 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<sup>1</sup> Encounters Start End Encounter Admission Attending Care Care Encounter Source Date/Time Date/Time Type Type Clinicians Facility Department ID 2019-10-08 2019-10-08 Shashank Goyal [facility] [id number] 15:35:00 15:35:00 Visit Ed Jimenez [id number] [place] [id number] [facility] [id number] nal 092 [facility] 2018-07-24 2018-07-24 [id number] 10:15:00 23:59:59 [facility] 2018-07-05 2018-07-05 Outpatient Hopper, [facility] [id number] 10:30:00 23:59:59 [facility] 2018-07-05 2018-07-05 Outpatient Hopper, [facility] [id number] 10:30:00 23:59:59 [facility] 2018-07-04 2018-07-05 Outpatient MHMG [facility] [id number] 08:18:00 23:59:59 2018-07-04 2018-07-05 Outpatient [facility] [id number] 08:18:00 23:59:59 2018-07-04 2018-07-04 Outpatient Hopper, [facility] [id number] 07:15:00 23:59:59 Kirt 2018-06-20 2018-06-20 Outpatient Hopper, [facility] [id number] 07:00:00 23:59:59 [facility] Results This patient has no known results.
--- NOTE | 2020-01-20 14:23 | RAD REPORT ---
EXAM DESCRIPTION: CT - Head Brain Wo Cont - 01/20/2020 1:56 pm CLINICAL HISTORY: history of unsteady gait, near syncope COMPARISON: No comparisons TECHNIQUE: Axial 5 mm thick images of the head were obtained without IV contrast. All CT scans are performed using dose optimization technique as appropriate and may include automated exposure control or mA/KV adjustment according to patient size. FINDINGS: No intracranial hemorrhage, mass, edema or shift of mid-line structures. No acute infarcti on changes seen. No abnormal extra-axial fluid collections. Patient has moderate severity atrophy wit h ventricles in proportion. Arterial tree calcifications are present. Chronic ischemic changes of the cerebral white matter are minimal. Mastoid air cells and visualized portions of the paranasal sinuses are clear. No acute bony findings. IMPRESSION: No acute intracranial finding identifiable. Moderate severity atrophy with minimal chronic ischemic change noted.
[2020-01-20 14:27] LABS: Absolute Lymphocytes (CBC) 1.3 K/uL (0.7-4.9); Basophils % 1.1 % (0-1.3); Hematocrit 42.5 % (39.6-49.0); MPV 9.2 fL (7.6-11.3); RBC Red Blood Cell Count 4.57 M/uL (4.33-5.43)
[2020-01-20 14:28] LABS: Protime INR 1.03
[2020-01-20 14:45] LABS: ALT/SGPT 26 U/L (12-78); AST/SGOT 21 U/L (15-37); Albumin 3.9 g/dL (3.4-5.0); Alkaline Phosphatase 51 U/L (45-117); BUN Blood Urea Nitrogen 18 mg/dL (7-18); Bicarbonate 29 mmol/L (21-32); Bilirubin Direct < 0.1 mg/dL (0-0.2); Bilirubin Total 0.5 mg/dL (0.2-1.0); Glucose Level 112 mg/dL (74-106); Magnesium 2.4 mg/dL (1.8-2.4); NT PRO-BNP 39 pg/mL (<450); Potassium 3.9 mmol/L (3.5-5.1); Protein, Total 7.3 g/dL (6.4-8.2); Sodium Level 138 mmol/L (136-145); Troponin (Emerg Dept Use Only) < 0.02 ng/mL (0.0-0.045)
[2020-01-20] MEDS ORDERED: ASPIRIN 81 MG CHEWABLE TABLET ONE (15:12)
--- NOTE | 2020-01-20 15:30 | RAD REPORT ---
EXAM DESCRIPTION: RAD - Chest Single View - 01/20/2020 2:31 pm CLINICAL HISTORY: unsteady gait COMPARISON: Portable September 2019 TECHNIQUE: AP portable chest image was obtained 01/20/2020 2:31 pm . FINDINGS: Lung volumes are low. Interstitial pattern is prominent but stable. Heart and vasculature are normal. No measurable pleural effusion and no pneumothorax. No acute bony abnormality seen. No ac mary's igloo aortic findings suspected. IMPRESSION: No acute cardiopulmonary process. No significant change from comparison.
--- NOTE | 2020-01-20 16:24 | RAD REPORT ---
EXAM DESCRIPTION: MRI - Brain Wo Cont - 01/20/2020 4:03 pm CLINICAL HISTORY: unsteady gait COMPARISON: MRI BRAIN WITHOUT CONTRAST dated 10/14/2014; Head Brain Wo Cont dated 01/20/2020 TECHNIQUE: Sagittal T1-weighted images were obtained along with axial PD, heavily T2-weighted and T2 -FLAIR images. Axial DWI and ADC mapping sequences were also obtained along with coronal heavily T2-w eighted images. FINDINGS: No intracranial hemorrhage, mass or acute infarction. There is no edema or shift of midlin e structures. No extra-axial fluid collections. Lobo-matter/white matter junction is preserved. Signa l voids are seen as a normal finding in the major intracranial vessels. Moderate severity atrophy changes are present. Ventricles do appear to be within in proportion to the amount of volume loss present. No transependymal migration of CSF. Normal pressure hydrocephalus is not suspected but can be correlated with clinical presentation and history. Patient has very little i f any identifiable chronic ischemic change in the cerebral white matter. No brainstem or basal gangli a chronic ischemic change. 10 mm focus in the left thalamus is potentially an old lacune or infarctio n. Perivascular space is also possible given the absence of any measurable chronic ischemic disease. Mastoid air cells and paranasal sinuses are clear. IMPRESSION: Atrophy changes similar to prior imaging. Ventricles are in proportion. Normal pressure hydrocephalus would not be suspected without supporting clinical findings and history. Patient has very little if any identifiable chronic ischemic change.
--- NOTE | 2020-01-20 16:54 | ER ---
Nurse's Notes [facility] Name: Thien Phan Jr Age: 79 yrs Sex: Male : 1940 Arrival Date: 01/20/2020 Time: 13:39 Bed 5 Private MD: Diagnosis: Abnormalities of gait and mobility Presentation: 01/19 13:40 Chief complaint: EMS states: PT HAS NO COMPLAINT, PER FACILITY PT HAS GAIT DISTURBANCE. bp Coronavirus screen: At this time, the client does not indicate any symptoms associated with coronavirus-19. Ebola Screen: No symptoms or risks identified at this time. No acute neurological deficit is noted. The patients blood glucose was checked before arriving to the hospital and was found to be normal. Initial Sepsis Screen: Does the patient meet any 2 criteria? HR > 90 bpm. No. Patient's initial sepsis screen is negative. Does the patient have a suspected source of infection? No. Patient's initial sepsis screen is negative. Risk Assessment: Do you want to hurt yourself or someone else? Patient reports no desire to harm self or others. Onset of symptoms is unknown. 13:40 Method Of Arrival: EMS: [facility] bp 13:40 Acuity: MIRIAM 3 bp Triage Assessment: 13:45 The onset of the patients symptoms was at an unknown time. General: Appears in no bp apparent distress. comfortable, Behavior is calm, cooperative. Pain: Denies pain. EENT: No deficits noted. Neuro: Reports GAIT DISTURBANCE. Cardiovascular: No deficits noted. Respiratory: No deficits noted. GI: No signs and/or symptoms were reported involving the gastrointestinal system. : No signs and/or symptoms were reported regarding the genitourinary system. Derm: No deficits noted. Musculoskeletal: Parent/caregiver report the patient having GAIT DISTURBANCE. 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 - Social history:: Smoking status: Patient denies any tobacco usage or history of. Screenin:40 Abuse screen: Denies threats or abuse. Denies injuries from another. bp 13:40 Nutritional screening: No deficits noted. Tuberculosis screening: No symptoms or risk bp factors identified. Fall Risk None identified. Assessment: 13:40 General: SEE TRIAGE NOTE. bp 13:40 VAN Scoring: Arm Drift: Patients demonstrates NO arm weakness. Patient is VAN Negative. bp The patient has not been NPO before screening. The patient is alert, and able to follow commands. The patient does not exhibit slurred or garbled speech. The patient is not exhibiting difficulty speaking. The patient does not exhibit difficulty understanding words. The patient is able to swallow own secretions with no drooling or need for suction. Patient tolerated one teaspoon of water. No drooling, immediate coughing, gurgling, or clearing of the throat was noted. The patient tolerated 90mL of water. No drooling, immediate coughing, gurgling, or clearing of the throat was noted. The patient passed the bedside swallow screening. Oral medications may be given as ordered. Contact Physician for further diet orders. Provider notified of bedside swallow screening results: Bogdan CARBAJAL. T-PA (Activase) Screening: Contraindications: Patient reports onset of signs and symptoms of stroke greater than 6 hours ago: Yes. 14:45 Reassessment: ALL CURRENT ORDERS COMPLETE. bp 15:05 Reassessment: Patient appears in no apparent distress at this time. Patient and/or bp family updated on plan of care and expected duration. Pain level reassessed. MRI PENDING. 15:30 Reassessment: PT TO MRI. bp 16:00 Reassessment: Patient appears in no apparent distress at this time. Patient and/or bp family updated on plan of care and expected duration. Pain level reassessed. PT RETURNED FROM MRI. FAMILY AT B/S Patient denies pain at this time. 16:47 Reassessment: Pt ambulatory to restroom, steady gait noted, pt denies any difficulty aa5 walking. PA witnessed pt walking. Pt placed back in bed. Awaiting on d/c home, pt and notified of wait time. . 17:00 Reassessment: PT D/C BACK TO [facility] WITH FAMILY, DX WITH GAIT DISTURBANCE. bp Vital Signs: 13:40 BP 164 / 91; Pulse 95; Resp 17; Temp 98.3; Pulse Ox 98% ; bp 14:20 BP 140 / 79; Pulse 73; Resp 16 S; Pulse Ox 99% on R/A; aa5 14:45 BP 140 / 79; Pulse 75; Resp 17; Pulse Ox 98% ; bp 15:00 BP 142 / 80; Pulse 68; Resp 21; Pulse Ox 97% ; bp 16:00 BP 147 / 88; Pulse 69; Resp 17; Pulse Ox 98% ; bp 17:00 BP 145 / 82; Pulse 71; Resp 17; Temp 98.5; Pulse Ox 98% ; bp NIH Stroke Scale Scores: 13:43 NIHSS Score: 0 cp ED Course: 13:39 Patient arrived in ED. bp 13:40 Bogdan Jimenez PA is PHCP. cp 13:40 Patient has correct armband on for positive identification. Bed in low position. Call bp light in reach. Side rails up X2. Adult w/ patient. 13:41 Yannick Hart MD is Attending Physician. cp 13:44 Triage completed. bp 13:45 Arm band placed on. bp 13:56 CT Head Brain wo Cont In Process Unspecified. EDMS 13:57 Román Abreu, RN is Primary Nurse. bp 14:10 Initial lab(s) drawn, by co, sent to lab. Inserted saline lock: 20 gauge in right aa5 antecubital area, using aseptic technique. Blood collected. 14:12 Patient moved back from CT. jg6 14:31 XRAY Chest (1 view) In Process Unspecified. EDMS 15:41 Brain Wo Cont In Process Unspecified. EDMS 17:00 No provider procedures requiring assistance completed. bp Administered Medications: 15:00 Drug: Aspirin 81 mg Route: PO; bp 15:05 Follow up: Response: No adverse reaction bp Outcome: 16:54 Discharge ordered by . cp 17:01 Discharged to fpc. Report called to [facility] bp 17:01 Condition: stable 17:01 Discharge instructions given to patient, family, fpc, Instructed on discharge instructions, follow up and referral plans. Demonstrated understanding of instructions, follow-up care. 17:02 Patient left the ED. bp NIH Stroke Scale - NIH Stroke Score Date: 01/20/2020 Time: 13:43 Total Score = 0 1a. Level of Consciousness (LOC) - 0(Alert) 1b. Level of Consciousness (LOC) (Year \\T\\ Age) - 0(Both) 1c. LOC Commands (Open \\T\\ Closes Eyes/Client Development Manager) - 0(Both) 2. Best Gaze (Lateral Gaze Paresis) - 0(Normal) 3. Visual Field Loss - 0(No visual loss) 4. Facial Palsy - 0(Normal) 5a. Left Arm: Motor (10-second hold) - 0(No drift) 5b. Right Arm: Motor (10-second hold) - 0(No drift) 6a. Left Leg: Motor (5-second hold - always test supine) - 0(No drift) 6b. Right Leg: Motor (5-second hold - always test supine) - 0(No drift) 7. Limb Ataxia (finger/nose \\T\\ heel/tompkins - test with eyes open) - 0(Absent) 8. Sensory Loss (pinprick arms/legs/face) - 0(Normal) 9. Best Language: Aphasia (description/naming/reading) - 0(No aphasia) 10. Dysarthria (speech clarity - read or repeat words) - 0(Normal) 11. Extinction and Inattention (visual/tactile/auditory/spatial/personal) - 0(No abnormality) Initials: cp Signatures: Dispatcher [employer] Rosaura Danielson, RN RN aa5 Bogdan Jimenez PA PA cp Peltier, Brian, RN RN bp Cielo Crow [id number] Corrections: (The following items were deleted from the chart) 16:23 16:00 Pulse 69bpm; Resp 17bpm; Pulse Ox 98%; bp bp
--- NOTE | 2020-01-20 16:55 | EDPHYS ---
Physician Documentation [facility] Name: Thien Phan Jr Age: 79 yrs Sex: Male : 1940 Arrival Date: 01/20/2020 Time: 13:39 Bed 5 Private MD: ED Physician Yannick Hart HPI: 01/19 13:43 This 79 yrs old Male presents to ER via Unassigned with complaints of Trouble cp Walking. 13:43 The patient presents to the emergency department with difficult walking, the patient is cp off balance. Onset: The symptoms/episode began/occurred 30 minute(s) ago. 13:43 Associated signs and symptoms: Pertinent negatives: altered mental status, headache, cp syncope, loss of vision, weakness. Patient's baseline: Neuro: alert but confused, Motor: no deficits, Ambulation: walks without assistance, Speech: normal for age. 13:43 Current symptoms: Currently, the patient is not experiencing any symptoms, no decreased cp level of consciousness. Patient referred to ED by assisted staff after being observed to "lean back" and seem unsteady while walking. Denies denies any weakness, but reports feeling unsteady and toward left side. 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 - Social history:: Smoking status: Patient denies any tobacco usage or history of. ROS: 13:50 Constitutional: Negative for body aches, chills, fever, poor PO intake. cp 13:50 Eyes: Negative for injury, pain, redness, and discharge. cp 13:50 Neck: Negative for pain with movement, pain at rest, stiffness. 13:50 Cardiovascular: Negative for chest pain, edema, palpitations. 13:50 Respiratory: Negative for cough, shortness of breath, wheezing. 13:50 Abdomen/GI: Negative for abdominal pain, nausea, vomiting, and diarrhea. 13:50 MS/extremity: Negative for injury or acute deformity, decreased range of motion. 13:50 Skin: Negative for rash. 13:50 Neuro: Positive for gait disturbance, Negative for altered mental status, dizziness, headache, numbness, syncope, weakness. 13:50 All other systems are negative. Exam: 13:55 Constitutional: The patient appears in no acute distress, alert, awake, comfortable, cp non-diaphoretic, non-toxic, well developed, well nourished. 13:55 Head/Face: Normocephalic, atraumatic. cp 13:55 Eyes: Periorbital structures: appear normal, Pupils: equal, round, and reactive to light and accomodation, Extraocular movements: intact throughout, Conjunctiva: normal, no exudate, no injection, Lids and lashes: appear normal, bilaterally. 13:55 ENT: External ear(s): are unremarkable, Nose: is normal, Mouth: Lips: moist, Oral mucosa: moist, Posterior pharynx: Airway: no evidence of obstruction, patent. 13:55 Neck: ROM/movement: is normal, is supple, without pain, no range of motions limitations. 13:55 Chest/axilla: Inspection: normal, Palpation: is normal, no crepitus, no tenderness. 13:55 Cardiovascular: Rate: normal, Rhythm: regular, Edema: is not appreciated, JVD: is not appreciated. 13:55 Respiratory: the patient does not display signs of respiratory distress, Respirations: normal, no use of accessory muscles, no retractions, labored breathing, is not present, Breath sounds: are clear throughout, no decreased breath sounds, no stridor, no wheezing. 13:55 Abdomen/GI: Inspection: abdomen appears normal, Bowel sounds: active, all quadrants, Palpation: abdomen is soft and non-tender, in all quadrants. 13:55 Skin: cellulitis, is not appreciated, no rash present. 13:55 Neuro: Orientation: no acute changes, per family, Mentation: no acute changes, per family, Cerebellar function: Romberg testing is negative, Motor: moves all fours, strength is normal, Sensation: is normal. 14:10 ECG was reviewed by the Attending Physician. cp Vital Signs: 13:40 BP 164 / 91; Pulse 95; Resp 17; Temp 98.3; Pulse Ox 98% ; bp 14:20 BP 140 / 79; Pulse 73; Resp 16 S; Pulse Ox 99% on R/A; aa5 14:45 BP 140 / 79; Pulse 75; Resp 17; Pulse Ox 98% ; bp 15:00 BP 142 / 80; Pulse 68; Resp 21; Pulse Ox 97% ; bp 16:00 BP 147 / 88; Pulse 69; Resp 17; Pulse Ox 98% ; bp 17:00 BP 145 / 82; Pulse 71; Resp 17; Temp 98.5; Pulse Ox 98% ; bp NIH Stroke Scale Scores: 13:43 NIHSS Score: 0 cp MDM: 13:42 Patient medically screened. cp 16:50 Data reviewed: vital signs, nurses notes, lab test result(s), EKG, radiologic studies, cp CT scan, MRI, plain films, and as a result, I will discharge patient. 16:50 Test interpretation: by ED physician or midlevel provider: ECG. 16:52 Counseling: I had a detailed discussion with the patient and/or guardian regarding: the cp historical points, exam findings, and any diagnostic results supporting the discharge/admit diagnosis, lab results, radiology results, the need for outpatient follow up, a family practitioner, to return to the emergency department if symptoms worsen or persist or if there are any questions or concerns that arise at home. 16:52 ED course: VSS. Patient observed ambulating in ED with steady gait unassisted. cp Discussed observation vs outpatient f/u and patient and spouse requesting discharge to home and will f/u with primary care physician. 01/19 13:42 Order name: Basic Metabolic Panel; Complete Time: 14:51 01/19 14:51 Interpretation: Normal except: GLUC 112; GFR 64. 01/19 13:42 Order name: CBC with Diff; Complete Time: 14:51 01/19 14:51 Interpretation: Normal except: GILBERTO% 76.5; LYM% 14.0. 01/19 13:42 Order name: LFT's; Complete Time: 14:51 01/19 13:42 Order name: Magnesium; Complete Time: 14:51 01/19 13:42 Order name: NT PRO-BNP; Complete Time: 14:51 01/19 13:42 Order name: PT-INR; Complete Time: 14:51 01/19 13:42 Order name: Troponin (emerg Dept Use Only); Complete Time: 14:51 01/19 14:52 Interpretation: Reviewed. 01/19 13:42 Order name: XRAY Chest (1 view); Complete Time: 15:47 01/19 15:47 Interpretation: Report review. 01/19 13:42 Order name: EKG; Complete Time: 13:43 01/19 13:42 Order name: Cardiac monitoring; Complete Time: 14:18 01/19 13:42 Order name: CT Head Brain wo Cont; Complete Time: 14:51 01/19 14:53 Interpretation: Report reviewed. 01/19 15:40 Order name: Brain Wo Cont; Complete Time: 16:27 EDMS 01/19 16:28 Interpretation: Report reviewed. 01/19 13:42 Order name: EKG - Nurse/Tech; Complete Time: 14:18 01/19 13:42 Order name: IV Saline Lock; Complete Time: 14:18 01/19 13:42 Order name: Labs collected and sent; Complete Time: 14:18 01/19 13:42 Order name: O2 Per Protocol; Complete Time: 14:18 01/19 13:42 Order name: O2 Sat Monitoring; Complete Time: 14:19 01/19 14:53 Order name: Swallow Screen; Complete Time: 15:05 01/19 16:29 Order name: Misc. Order: ambulate patient; Complete Time: 16:47 cp EC:10 Rate is 79 beats/min. Rhythm is regular. KS interval is normal. QRS interval is normal. cp QT interval is normal. T waves are Inverted in lead III. Interpreted by me. Reviewed by me. Administered Medications: 15:00 Drug: Aspirin 81 mg Route: PO; bp 15:05 Follow up: Response: No adverse reaction bp Disposition: 01/20 06:53 Co-signature as Attending Physician, Yannick Hart MD I agree with the assessment and kdr plan of care. Disposition: 01/20/20 16:54 Discharged to Home. Impression: Abnormalities of gait and mobility. - Condition is Stable. - Discharge Instructions: Aspirin and Your Heart. - Medication Reconciliation Form, Thank You Letter, Antibiotic Education, Prescription Opioid Use form. - Follow up: Private Physician; When: 1 - 2 days; Reason: Recheck today's complaints. - Problem is new. - Symptoms have improved. NIH Stroke Scale - NIH Stroke Score Date: 01/20/2020 Time: 13:43 Total Score = 0 1a. Level of Consciousness (LOC) - 0(Alert) 1b. Level of Consciousness (LOC) (Year \\T\\ Age) - 0(Both) 1c. LOC Commands (Open \\T\\ Closes Eyes/Software Engineer) - 0(Both) 2. Best Gaze (Lateral Gaze Paresis) - 0(Normal) 3. Visual Field Loss - 0(No visual loss) 4. Facial Palsy - 0(Normal) 5a. Left Arm: Motor (10-second hold) - 0(No drift) 5b. Right Arm: Motor (10-second hold) - 0(No drift) 6a. Left Leg: Motor (5-second hold - always test supine) - 0(No drift) 6b. Right Leg: Motor (5-second hold - always test supine) - 0(No drift) 7. Limb Ataxia (finger/nose \\T\\ heel/tompkins - test with eyes open) - 0(Absent) 8. Sensory Loss (pinprick arms/legs/face) - 0(Normal) 9. Best Language: Aphasia (description/naming/reading) - 0(No aphasia) 10. Dysarthria (speech clarity - read or repeat words) - 0(Normal) 11. Extinction and Inattention (visual/tactile/auditory/spatial/personal) - 0(No abnormality) Initials: cp Signatures: Dispatcher [employer] Yannick Elizondo MD MD kdr Page, Corey, PA PA cp Román Abreu, RN RN bp Corrections: (The following items were deleted from the chart) 01/19 15:40 14:19 MR STROKE PROTOCOL+MRI.RAD.GIORGIO ordered. [facility] 17:02 16:54 01/20/2020 16:54 Discharged to Home. Impression: Abnormalities of gait bp and mobility. Condition is Stable. Forms are Medication Reconciliation Form, Thank You Letter, Antibiotic Education, Prescription Opioid Use. Follow up: Private Physician; When: 1 - 2 days; Reason: Recheck today's complaints. Problem is new. Symptoms have improved. cp
[2020-01-20 21:58] VITALS: O2SAT 98
[2020-01-20 22:36] VITALS: BP 145/82; TEMP 98.5
--- NOTE | 2020-01-21 12:06 | EKG ---
Test Date: 2020-01-20 Test Time: 14:03:32 Public Health Inspector: ANT MEASUREMENT RESULTS: Intervals: Rate: 79 MD: 144 QRSD: 98 QT: 356 QTc: 408 [place]: P: 53 MD: 144 QRS: -9 T: -3 INTERPRETIVE STATEMENTS: Normal sinus rhythm Minimal voltage criteria for LVH, may be normal variant Inferior infarct, age undetermined Abnormal ECG Compared to ECG 09/12/2019 09:07:13 Left ventricular hypertrophy now present Myocardial infarct finding now present Electronically Signed On 01-21-20 12:03:23 GANG LEADER by Billy Koehler
== END 2020-01-20 17:02 | disposition home or self-care (01) ==
LOC: ER 13:34
DX: R26.9 Unspecified abnormalities of gait and mobility (principal); G30.9 Alzheimer's disease, unspecified; F02.80 Dementia in other diseases classified elsewhere, unspecified severity, without behavioral disturbance, psychotic disturbance, mood disturbance, and anxiety; Z86.73 Personal history of transient ischemic attack (TIA), and cerebral infarction without residual deficits; Z88.5 Allergy status to narcotic agent; Z88.8 Allergy status to other drugs, medicaments and biological substances
CPT/HCPCS: 36415; 70450; 70551; 71045; 80048; 80076; 83735; 83880; 84484; 85025; 85610; 93005; 99284

== ENCOUNTER 2021-03-12 12:15 | Emergency (ER) | payer OTHER ==
--- OUTSIDE RECORDS SUMMARY | 2021-03-12 12:17 | XMS REPORT | Continuity of Care Document ---
:1940 Author Organization [facility] t Address [address] [place] [address] Care Team Providers Name Role Phone Katerina ANGELA Primary Care Physician Unavailable BENJAMIN GOYAL Attending Clinician Unavailable BENJAMIN GOYAL Attending Clinician Unavailable Benjamin Goyal MD Attending Clinician Payers Payer Name Policy Type Policy Number Effective Date Expiration Date S [facility] CHOICE CARE [id number] 2018 00:00:00 Problems This patient has no known problems. Allergies, Adverse Reactions, Alerts Allergy Allergy Status Severity Reaction(s) Onset Inactive Treating Comm ents Source Name Type Date Date Clinician [place] DRUG Active High Anaphylaxis 2019-0 Uni vers INE INGREDI 6-19 ity of 00:00: [address] NO KNOWN Drug Active Univers [place]ER[place]IE Class ity of [facility] Medications This patient has no known medications. Procedures This patient has no known procedures. Encounters Start End Encounter Admission Attending Care Care Encounter Source Date/Time Date/Time Type Type Clinicians Facility Department ID 2021-03-22 2021-03-22 Outpatient ED FAROO[facility] [id number] Univers 16:20:00 16:20:00 [facility] [id number] 2020-08-03 Outpatient ED [facility] [id number] Univers 09:40:00 09:40:00 [facility] [id number] 2020-08-03 Outpatient ED [facility] [id number] Univers 09:40:00 09:40:00 ED GOYAL [facility] 2020-05-08 2020-05-08 Outpatient R ED GOYAL [facility] [id number] Univers 14:20:00 14:20:00 JAY JAYED [id number] [facility] 2020-05-08 2020-05-08 Outpatient R JAY JAY, ED [facility] [id number] Univers 14:20:00 14:20:00 ED GOYAL [facility] 2019-10-08 2019-10-08 Office Jay Jay, [facility] [id number] 15:35:00 15:35:00 Visit Ed Jimenez [id number] [place] [id number] by [facility] 0[facility] 2019-10-08 2019-10-08 Outpatient ED FAROOQ [facility] [id number] Univers 10:40:00 10:40:00 ED GOYAL [id number] [facility] 2019-10-08 2019-10-08 Outpatient R ED GOYAL [facility] [id number] Univers 10:40:00 10:40:00 ED GOYAL [facility] 2019-08-30 2019-08-30 Outpatient ED F[facility] [id number] Univers 14:40:00 14:40:00 ED GOYAL [id number] [facility] 2019-08-30 2019-08-30 Outpatient ED FAROO[facility] [id number] Univers 14:40:00 14:40:00 ED GOYAL theodore [facility] 2019-05-10 2019-05-10 Outpatient ED [facility] [id number] Univers 15:20:00 15:20:00 ED GOYAL theodore [facility] Results This patient has no known results.
--- NOTE | 2021-03-12 13:27 | ER ---
Nurse's Notes [facility] Name: Thien Phan Jr Age: 80 yrs Sex: Male : 1940 Arrival Date: 03/12/2021 Time: 12:16 Bed Waiting Private MD: Diagnosis: Presentation: 03/12 13:25 Note call to triage, pt reported by front office developer staff to have left. bernal ED Course: 12:16 Patient arrived in ED. ds1 Administered Medications: No medications were administered Outcome: 13:26 Patient left the ED. bernal Signatures: Maggi Moreno ds1 Manisha Mendoza RN RN bernal
== END 2021-03-12 13:26 | disposition left against medical advice (07) ==
LOC: ER 12:15
DX: Z02.89 Encounter for other administrative examinations (principal)

== ENCOUNTER 2022-03-15 21:52 | Emergency (ER) | payer OTHER ==
--- OUTSIDE RECORDS SUMMARY | 2022-03-15 21:56 | XMS REPORT | Continuity of Care Document ---
:1940 Author Organization [facility] t Address [address] [place] [address] Care Team Providers Name Role Phone Swapnil Patel Primary Care Physician Ed Goyal MD Attending Clinician ED GOYAL Attending Clinician Unavailable ED GOYAL Attending Clinician Unavailable Vimal Woodard Attending Clinician Doctor Unassigned, [place] Attending Clinician Unavailable Daniella Valdes Attending Clinician Kirt Hopper Attending Clinician Payers Payer Name Policy Type Policy Number Effective Date Expiration Date S ource Problems Condition Condition Condition Status Onset Resolution Last Treating Co mments Source Name Details Category Date Date Treatment Clinician Date Alzheimer' Alzheimer' Disease Active 2021-03 U nivers s disease s disease 2-20 ity of 00:00: [place] [address] Medical Branch Memory Memory Disease Active 2021-03 Univers loss loss 2-20 ity of 00:00: [place] [address] Medical Branch Sundowning Sundowning Disease Active 2021-03 U nivers 2-20 ity of 00:00: [place] [address] Medical Branch 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 Medical Group Allergic Allergic Problem Active 2014-2018-07-26 Memoria rhinitis rhinitis 6- 22:02:27 l (disorder) (disorder) 00:00: He rmann Active 00 08/20/2013 Problem 07/26/2018 Data migrated from [facility] on 08/09/14. Medical Group DDC-COLONO DDC-COLON Diagnosis Active 2010-032011-01-26 Memoria SCOPY OSCOPY - 09:50:00 l Active 00:00: Gio 01/12/2011 00 [facility] No known No known Disease Unive rs active active ity of problems problems [facility] Transient Transient Problem Resolve 2018-07-26 Memoria ischemic ischemic d 22:02:27 l attack attack [place] (disorder) (disorder) Resolved Problem 07/26/2018 Medical Group Laceration Laceratio Problem Active 2018-07-26 Memoria - injury n - injury 22:02:27 l (disorder) (disorder) He rmann Active Problem 07/26/2018 Medical Group 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 Trell n (disorder) (disorder) Active Problem 07/26/2018 Medical Group Obesity Obesity Problem Active 2018-07-26 Me moria (disorder) (disorder) 22:02:27 l Active Gio Problem 07/26/2018 Medical Group SCREEN SCREEN Diagnosis Active 2011-01-26 Me moria 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:50:00 l NEOP-COLON NEOP-COLON He rmann Active [facility] Allergies, Adverse Reactions, Alerts Allergy Allergy Status Severity Reaction(s) Onset Inactive Treating Comm ents Source Name Type Date Date Clinician GALANTAM DRUG Active High Anaphylaxis 0 Uni vers INE INGREDI 6-19 ity of 00:00: [place] 00 Medical Branch Galantam Propensi Active Dizziness 2019-0 Uni vers ine ty to 19 ity of adverse 00:00: [place] reaction 00 Medical s to Branch drug Social History Social Habit Start Date Stop Date Quantity Comments Source Exposure to 2022-02-18 2022-02-28 Not sure [facility] SARS-CoV-2 00:00:00 14:44:00 [place] Medical (event) Branch Tobacco use and 2022-02-28 2022-02-28 Smokeless tobacco Un iversity of exposure 00:00:00 00:00:00 non-user [facility] Social History 2015-10-05 2015-10-[address] [facility] Evelyn covington 20:59:36 20:59:36 Sex [birth year] At [birth year] Universit y of 00:00:00 00:00:00 [facility] Smoking Status Start Date Stop Date Source Never smoked tobacco [facility] Medications Ordered Filled Start Stop Current Ordering Indication Dosage Frequency Signature Comments Components Source Medication Medication Date Date Medication? Clinician (SIG) Name Name lisinopriL 2021-0 Yes 5mg Take 5 mg Un conor 5 mg tablet 5-24 by mouth ity of 09:56: daily. [address] tamsulosin 2020-0 Yes Take by Univ ers 0.4 mg 24 5-24 mouth ity of hr capsule 09:56: daily. [address] lisinopriL 2021-0 Yes 5mg Take 5 mg Un conor 5 mg tablet 5-24 by mouth ity of 09:56: daily. [address] tamsulosin 1-0 Yes Take by Univ ers 0.4 mg 24 5-24 mouth ity of hr capsule 09:56: daily. [address] lisinopriL 1-0 Yes 5mg Take 5 mg Un conor 5 mg tablet 5-24 by mouth ity of 09:56: daily. [address] tamsulosin 1-0 Yes Take by Univ ers 0.4 mg 24 5-24 mouth ity of hr capsule 09:56: daily. [address] lisinopriL 1-0 Yes 5mg Take 5 mg Un conor 5 mg tablet 5-24 by mouth ity of 09:56: daily. [address] tamsulosin 1-0 Yes Take by Univ ers 0.4 mg 24 5-24 mouth ity of hr capsule 09:56: daily. [address] lisinopriL 1-0 Yes 5mg Take 5 mg Un conor 5 mg tablet 5-24 by mouth ity of 09:56: daily. [address] tamsulosin 1-0 Yes Take by Univ ers 0.4 mg 24 5-24 mouth ity of hr capsule 09:56: daily. [address] lisinopriL 1-0 Yes 5mg Take 5 mg Un conor 5 mg tablet 5-24 by mouth ity of 09:56: daily. [place] [address] Medical Branch tamsulosin 1-0 Yes Take by Univ ers 0.4 mg 24 5-24 mouth ity of hr capsule 09:56: daily. [place] [address] Medical Branch lisinopriL 2021-0 Yes 5mg Take 5 mg Un conor 5 mg tablet 5-24 by mouth ity of 09:56: daily. [place] [address] Medical Branch tamsulosin 2020-0 Yes Take by Univ ers 0.4 mg 24 5-24 mouth ity of hr capsule 09:56: daily. [place] [address] Medical Branch lisinopriL 1-0 Yes 5mg Take 5 mg Un conor 5 mg tablet 5-24 by mouth ity of 09:56: daily. [place] [address] Medical Branch tamsulosin 2020-0 Yes Take by Univ ers 0.4 mg 24 5-24 mouth ity of hr capsule 09:56: daily. [place] [address] Medical Branch lisinopriL 1-0 Yes 5mg Take 5 mg Un conor 5 mg tablet 5-24 by mouth ity of 09:56: daily. [place] [address] Medical Branch tamsulosin 2020-0 Yes Take by Univ ers 0.4 mg 24 5-24 mouth ity of hr capsule 09:56: daily. [place] [address] Medical Branch lisinopriL 1-0 Yes 5mg Take 5 mg Un conor 5 mg tablet 5-24 by mouth ity of 09:56: daily. [place] [address] Medical Branch tamsulosin 2020-0 Yes Take by Univ ers 0.4 mg 24 5-24 mouth ity of hr capsule 09:56: daily. [place] [address] Medical Branch lisinopriL 1-0 Yes 5mg Take 5 mg Un conor 5 mg tablet 5-24 by mouth ity of 09:56: daily. [place] [address] Medical Branch tamsulosin 1-0 Yes Take by Univ ers 0.4 mg 24 5-24 mouth ity of hr capsule 09:56: daily. [place] [address] Medical Branch QUEtiapine 2020-0 Yes 25mg Take 1 Unive rs (SEROQUEL) 7-07 tablet by ity of 25 mg 00:00: mouth at [place] tablet 00 bedtime. Medical Branch QUEtiapine 2020-0 Yes 25mg Take 1 Unive rs (SEROQUEL) 7-07 tablet by ity of 25 mg 00:00: mouth at [place] tablet 00 bedtime. Medical Branch QUEtiapine 2020-0 Yes 25mg Take 1 Unive rs (SEROQUEL) 7-07 tablet by ity of 25 mg 00:00: mouth at [place] tablet 00 bedtime. Medical Branch QUEtiapine 2020-0 Yes 25mg Take 1 Unive rs (SEROQUEL) 7-07 tablet by ity of 25 mg 00:00: mouth at [place] tablet 00 bedtime. Medical Branch QUEtiapine 2020-0 Yes 25mg Take 1 Unive rs (SEROQUEL) 7-07 tablet by ity of 25 mg 00:00: mouth at [place] tablet 00 bedtime. Medical Branch QUEtiapine 2020-0 Yes 25mg Take 1 Unive rs (SEROQUEL) 7-07 tablet by ity of 25 mg 00:00: mouth at [place] tablet 00 bedtime. Medical Branch QUEtiapine 2020-0 2022- No 25mg Take 1 Univ ers (SEROQUEL) 7-07 12-19 tablet by ity of 25 mg 00:00: 00:00 mouth at [place] tablet 00 :00 bedtime. Medical Branch QUEtiapine 2020-0 2022- No 25mg Take 1 Univ ers (SEROQUEL) 7-07 12-19 tablet by ity of 25 mg 00:00: 00:00 mouth at [place] tablet 00 :00 bedtime. Medical Branch mirtazapine 2020-0 Yes 7.5mg Take 1 Uni vers 7.5 mg 4-14 tablet by ity of tablet 00:00: mouth at [place] 00 bedtime. Medical Branch mirtazapine 2020-0 Yes 7.5mg Take 1 Uni vers 7.5 mg 4-14 tablet by ity of tablet 00:00: mouth at [place] 00 bedtime. Medical Branch mirtazapine 2020-0 Yes 7.5mg Take 1 Uni vers 7.5 mg 4-14 tablet by ity of tablet 00:00: mouth at [place] 00 bedtime. Medical Branch mirtazapine 2020-0 Yes 7.5mg Take 1 Uni vers 7.5 mg 4-14 tablet by ity of tablet 00:00: mouth at [place] 00 bedtime. Medical Branch mirtazapine 2020-0 Yes 7.5mg Take 1 Uni vers 7.5 mg 4-14 tablet by ity of tablet 00:00: mouth at [place] [address] bedtime. Medical Branch mirtazapine 2020-0 Yes 7.5mg Take 1 Uni vers 7.5 mg 4-14 tablet by ity of tablet 00:00: mouth at [place] [address] bedtime. Medical Branch mirtazapine 2020-0 Yes 7.5mg Take 1 Uni vers 7.5 mg 4-14 tablet by ity of tablet 00:00: mouth at [place] [address] bedtime. Medical Branch mirtazapine 2020-0 Yes 7.5mg Take 1 Uni vers 7.5 mg 4-14 tablet by ity of tablet 00:00: mouth at [place] [address] bedtime. Medical Branch mirtazapine 2020-0 Yes 7.5mg Take 1 Uni vers 7.5 mg 4-14 tablet by ity of tablet 00:00: mouth at [place] [address] bedtime. Medical Branch mirtazapine 2020-0 Yes 7.5mg Take 1 Uni vers 7.5 mg 4-14 tablet by ity of tablet 00:00: mouth at [place] [address] bedtime. Medical Branch mirtazapine 2020-0 Yes 7.5mg Take 1 Uni vers 7.5 mg 4-14 tablet by ity of tablet 00:00: mouth at [place] [address] bedtime. Medical Branch Clotrimazol Yes 1 appl, Mem oria e 10 MG/ML 4-25 TOP, BID, l Topical 15:43: Right ear Tessa nn Solution 00 canal, X 10 day, # 30 mL, 0 Refill(s), Pharmacy: [facility] fluconazole Yes 200 mg = 1 Memoria 200 mg oral 4-25 tab, PO, l tablet 15:43: Daily, X Gio 00 10 day, # 10 tab, 0 Refill(s), Pharmacy: [facility] 52 Multi Yes 0 Memoria Vitamin+ 4-25 Refill(s) l 15:29: Gio 00 Amoxicillin 2018- Yes 875 mg = 1 Memoria 875 MG / 4-10 tab, PO, l Clavulanate 12:31: Q12H, X 10 Gio 125 MG Oral 00 day, # 20 Tablet tab, 0 [Augmentin Refill(s), 875-mg] Pharmacy: [facility] 52 Immunizations Ordered Immunization Filled Immunization Date Status Commen ts Source Name Name diphtheria/pertussis 2013-08-20 Completed Bud rial , acel/tetanus 05:00:00 Gio adult<sup>1</sup> Vital Signs Vital Name Observation Time Observation Value Comments Source Heart rate 2022-02-28 19:51:00 80 /min [facility] Body height 2022-02-28 19:51:00 175.3 cm [facility] Systolic blood 2022-02-28 19:51:00 112 mm[Hg] Univer sity of pressure [facility] Diastolic blood 2022-02-28 19:51:00 63 mm[Hg] Unive rsity of pressure [facility] Systolic blood 2021-08-30 14:01:00 115 mm[Hg] Univer sity of pressure [facility] Diastolic blood 2021-08-30 14:01:00 72 mm[Hg] Unive rsity of [facility] Heart rate 2021-08-30 14:01:00 66 /min [facility] BMI Calculated 2018-07-24 14:52:00 Jyotsnaori al [place] Weight 2018-07-24 14:52:[address] [facility] [place] Height 2018-07-24 14:52:00 175.26 cm [facility] [place] Systolic (mm Hg) 2018-07-24 14:52:00 Bud rial [place] Diastolic (mm Hg) 2018-07-24 14:52:00 Mem orial [place] Temperature Oral (F) 2018-07-24 14:52:00 [facility] 2018-07-24 14:52:00 [facility] [place] Weight 2018-07-05 15:19:[address] [facility] Gio BMI Calculated 2018-07-05 15:19:00 Jyotsnaori al [place] Height 2018-07-05 15:19:00 175.26 cm [facility] [place] Temperature Oral (F) 2018-07-05 15:19:00 98.4 F [facility] [place] Heart Rate 2018-07-05 15:19:00 [facility] [place] Systolic (mm Hg) 2018-07-05 15:19:00 Bud rial [place] Diastolic (mm Hg) 2018-07-05 15:19:00 Mem orial [place] Systolic (mm Hg) 2018-07-04 12:12:00 Bud rial [place] Diastolic (mm Hg) 2018-07-04 12:12:00 Mem orial [place] Heart Rate 2018-07-04 12:12:00 Memorial Gio Temperature Oral (F) 2018-07-04 12:12:00 98.5 F [facility] [place] Weight 2018-07-04 12:12:00 [facility] [place] Systolic (mm Hg) 2018-06-20 12:09:00 Bud rial [place] Diastolic (mm Hg) 2018-06-20 12:09:00 Mem orial [place] Heart Rate 2018-06-20 12:09:00 [facility] [place] Temperature Oral (F) 2018-06-20 12:09:00 98.3 F [facility] [place] Weight 2018-06-20 12:09:00 [facility] Gio Procedures Procedure Date / Time Performed Performing Clinician [facility] e Removal impacted cerumen 2018-07-05 15:49:00 Mem orial Gio requiring instrumentation, unilateral 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<sup>1</sup> Encounters Start End Encounter Admission Attending Care Care Encounter Source Date/Time Date/Time Type Type Clinicians Facility Department ID 2022-03-15 2022-03-15 Telephone [facility] [id number] Univers 00:00:00 00:00:00 Ed [facility] [id number] ity of [place] [id number] Sandip as [place]?BLEA [phone] [address] MEDICAL OFFICE [facility] 2022-03-09 2022-03-09 Telephone [facility] [id number] Univers 00:00:00 00:00:00 Ed [facility] [id number] ity of [place] [id number] Sandip as [place]?BLEA [phone] [address] MEDICAL OFFICE BUILDING 2022-03-07 2022-03-07 Telephone [facility] [id number] Univers 00:00:00 00:00:00 [employer] [id number] it y of [place] [id number] Sandip as [place]?BLEA [phone] [address] MEDICAL OFFICE BUILDING 2022-02-28 2022-02-28 [facility] [id number] Univers 13:30:00 15:24:57 Visit [facility] [id number] it y of [place] [id number] Sandip as [place]?BLEA [id number] [address] OFFICE [facility] 2022-02-28 2022-02-28 Outpatient R KOMAL [facility] [id number] Univers 13:30:00 15:24:57 VIMAL theodore [facility] 2022-02-23 2022-02-23 Telephone [facility] [id number] Univers 00:00:00 00:00:00 [facility] [id number] ity of [place] [id number] Sandip as [place]?BLEA [phone] [address] OFFICE [facility] 2021 2021 Telephone [facility] [id number] Univers 00:00:00 00:00:00 [facility] [id number] ity of [place] [id number] Sandip as [place]?BLEA [id number] [address] OFFICE [facility] 2021-08-31 2021-08-31 Telephone [facility] [id number] Univers 00:00:00 00:00:00 [place] [employer] [facility] [id number] ity of [place] [id number] Sandip as [place]?BLEA [id number] [address] OFFICE [facility] 2021-08-30 2021-08-30 Outpatient R ED GOYAL [facility] [id number] Univers 09:00:00 09:22:40 [facility] 2021-08-30 2021-08-30 Office [facility] [id number] Univers 09:00:00 09:22:40 Visit Ed [facility] [id number] ity of [place] [id number] Sandip as [place]?BLEA [phone] [address] OFFICE [facility] 2021-08-30 2021-08-30 Orders Doctor MICHAEL [id number] Univers 00:00:00 00:00:00 Only Unassigned, ZARI [id number] ity of [place] [facility] 4.2.7.2.686 Sandip as [phone] [address] 2021-04-07 2021-04-07 Telephone [facility] [id number] Univers 00:00:00 00:00:00 [facility] [id number] ity of [place] [id number] Sandip as [place]?BLEA [id number] [address] 2021-04-07 2021-04-07 Telephone [facility] [id number] Univers 00:00:00 00:00:00 [facility] [id number] ity of [place] 4.2.7.2.686 Sandip as [place]?BLEA [id number] [address] 2021-04-07 2021-04-07 Orders Doctor MICHAEL 1.2.840.114 [id number] Univers 00:00:00 00:00:00 Only Unassigned, ZARI [id number] ity of [place] [facility] 4.2.7.2.686 Sandip as [id number] [address] 2021-03-22 2021-03-22 Office [facility] 1.2.840.114 [id number] Univers 16:20:00 16:58:49 Visit [facility] [id number] ity of [place] [id number] Sandip as [place]?BLEA [id number] [address] OFFICE [facility] 2021-03-22 2021-03-22 Outpatient R ED GOYAL [facility] [id number] Univers 16:20:00 16:58:49 ED GOYAL [facility] 2021-03-22 2021-03-22 Outpatient ED FAROOQ [facility] [id number] Univers 16:20:00 16:20:00 ED GOYAL [facility] 2021-03-22 2021-03-22 Orders Doctor RODRIGUEZ 1.2.840.114 [id number] Univers 00:00:00 00:00:00 Only Unassigned, ZARI [id number] [facility] 4.2.7.2.686 Sandip as [id number] [address] 2020-08-03 2020-08-03 Outpatient ED FAROOQ [facility] [id number] Univers 09:40:00 09:40:00 ED GOYAL theodore [facility] 2020-05-08 2020-05-08 Outpatient Velia ED GOYAL [facility] [id number] Univers 14:20:00 14:20:00 ED GOYAL [facility] 2019-10-08 2019-10-08 Office Jay Jay [facility] [id number] 15:35:00 15:35:00 Visit Ed Jimenez [id number] [place] 4.2.7.2.686 Professio [id number] formerly [facility] 2019-10-08 2019-10-08 Outpatient ED FAROOQ [facility] [id number] Univers 10:40:00 10:40:00 ED GOYAL theodore [facility] 2019-08-30 2019-08-30 Outpatient Velia ED GOYAL [facility] [id number] Univers 14:40:00 14:40:00 JAY JAYED PERSON theodore [facility] 2019-05-10 2019-05-10 Outpatient Velia ED GOYAL [facility] [id number] Univers 15:20:00 15:20:00 ED GOYAL [facility] 2018-07-24 2018-07-25 Outpatient nullFlavo [facility] [id number] Memoria 15:15:00 04:59:59 r Otolaryngol 04 l ogy Marivel castillo [facility] 2018-07-24 2018-07-24 [place] [id number] 10:15:00 23:59:59 Sreekrishna Roxie [facility] 2018-07-24 2018-07-24 Outpatient MHIE MH[facility] [id number] Memoria 10:15:00 10:15:00 04 edmund Gio 2018-07-05 2018-07-06 Outpatient nullFlavo [facility] [id number] Memoria 15:30:00 04:59:59 r Otolaryngol 03 l lola castillo [facility] 2018-07-04 2018-07-06 Phone nullFlavo [facility] [id number] Memoria 13:18:00 04:59:59 Message r Medicine 00 edmund Ariasann 2018-07-05 2018-07-05 Outpatient Hopper, [facility] [id number] 10:30:00 23:59:59 [facility] 2018-07-05 2018-07-05 Outpatient Hopper, [facility] MG [id number] 10:30:00 23:59:59 [facility] 2018-07-04 2018-07-05 Outpatient MHMG [facility] [id number] 08:18:00 23:59:59 00 2018-07-04 2018-07-05 Outpatient MHMG [facility] [id number] 08:18:00 23:59:59 00 2018-07-05 2018-07-05 Outpatient MHIE MHIE [id number] Memoria 10:30:00 10:30:00 03 edmund [place] 2018-07-04 2018-07-05 Outpatient nullFlavo [facility] 3 [id number] Memoria 12:15:00 04:59:59 r Medicine 02 edmund Ariasann 2018-07-04 2018-07-04 Outpatient Hopper, [facility] [id number] 07:15:00 23:59:59 [facility] 2018-07-04 2018-07-04 Outpatient MHIE MHIE [id number] Memoria 07:15:00 07:15:00 02 edmund Powers 2018-06-20 2018-06-21 Outpatient nullFlavo [facility] 3 [id number] Memoria 12:00:00 04:59:59 r Medicine 01 l Bessiebabar Powers 2018-06-20 2018-06-20 Outpatient Hopper, [facility] MG [id number] 07:00:00 23:59:59 K[place] 2018-06-20 2018-06-20 Outpatient MHIE IE [id number] Memoria 07:00:00 07:00:00 01 edmund Powers 2011-01-26 2011-01-26 Outpatient nullFlavo [facility] [id number] Memoria 08:27:00 08:27:00 [facility] 00 l [place] Gio Results This patient has no known results.
[2022-03-15 22:58] LABS: Protime INR 1.06
[2022-03-15 23:19] LABS: Absolute Lymphocytes (CBC) 1.2 K/uL (0.7-4.9); Hematocrit 44.4 % (39.6-49.0); Lymphocytes % 11.2 % (15.3-44.8); MCV 93.6 fL (80-100); MPV 9.1 fL (7.6-11.3); RBC Red Blood Cell Count 4.74 M/uL (4.33-5.43)
--- NOTE | 2022-03-15 23:24 | RAD REPORT ---
EXAM DESCRIPTION: CT - Head Brain Wo Cont - 03/15/2022 11:10 pm CLINICAL HISTORY: Mental status change, unknown cause COMPARISON: Abdomen Pelvis Wo Contrast dated 12/06/2021; Abdomen Pelvis W Contrast dated ; Abdomen Pelvis Wo Contrast dated 09/15/2020; Stone Protocol dated 10/23/2019Head Brain Wo Cont date d 01/20/2020 TECHNIQUE: All CT scans are performed using dose optimization technique as appropriate and may inclu de automated exposure control or mA/KV adjustment according to patient size. FINDINGS: No intracranial hemorrhage, hydrocephalus or extra-axial fluid collection.No areas of brai n edema or evidence of midline shift. Cerebral atrophy. Expected dilatation of the ventricular system . Remote left basal ganglia lacunar infarct. The paranasal sinuses and mastoids are clear. The calvarium is intact. IMPRESSION: No acute intracranial abnormality. Age advanced cerebral atrophy.
[2022-03-15 23:43] LABS: Urine Blood 2+ (Negative); Urine Glucose Negative (Negative); Urine Protein Negative (Negative); Urine Specific Gravity 1.025 (1.005-1.030); Urine pH 5.5 (5.0-7.0)
[2022-03-16 00:01] LABS: Urine Bacteria None Seen /HPF (<20); Urine Mucus Slight /HPF (None Seen)
--- NOTE | 2022-03-16 00:16 | ER ---
Nurse's Notes [facility] Name: Thien Phan Jr Age: 81 yrs Sex: Male : 1940 Arrival Date: 03/15/2022 Time: 21:55 Bed 8 Private MD: Diagnosis: Alzheimer's disease, unspecified Presentation: 03/15 22:13 Chief complaint: Spouse and/or significant other states: "He lives over at the nursing [facility]. They called me saying that he has been falling a lot of he has a fever. They told me that he needed to come the ER right away.". Coronavirus screen: Vaccine status: Patient reports receiving the 2nd dose of the covid vaccine. Moderna. Ebola Screen: Patient negative for fever greater than or equal to 101.5 degrees Fahrenheit, and additional compatible Ebola Virus Disease symptoms Patient denies exposure to infectious person. No symptoms or risks identified at this time. Initial Sepsis Screen: Does the patient meet any 2 criteria? No. Patient's initial sepsis screen is negative. Does the patient have a suspected source of infection? No. Patient's initial sepsis screen is negative. Risk Assessment: Do you want to hurt yourself or someone else? Patient reports no desire to harm self or others. Onset of symptoms is unknown. 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 - Social history:: Smoking status: Patient denies any tobacco usage or history of. Screenin:12 [facility] ED Fall Risk Assessment (Adult) History of falling in the last 3 months, jb4 including since admission Yes- single mechanical fall (1 pt) Confusion or Disorientation Yes (5 pts) Intoxicated or Sedated No (0 pts) Impaired Gait Yes (1 pt) Mobility Assist Device Used No (0 pt) Altered Elimination Yes (1 pt) Score/Fall Risk Level 3 or more points = High Risk Oriented to surroundings, Maintained a safe environment, Educated pt \\T\\ family on fall prevention, incl call for assistance when getting out of bed, Assessed \\T\\ reinforced patient's understanding of fall precautions, Provided non-skid footwear, Hourly rounding (assess needs \\T\\ fall precautionary measures) done, Used ambulatory aids as needed (educated on \\T\\ assisted with), Used gait belt as appropriate Implemented a Fall Risk Plan of Care, Apply high fall risk patient identification: yellow non skid footwear/ fall signage, Placed fall mat w/ non beveled edge next to bed, Activated bed/chair alarm, Remained w/in arm's length of patient and in sight while toileting, Offered frequent toileting (1:1 observation), Remained with patient while ambulating, Utilized family, sitter, or virtual help aid as indicated. Abuse screen: Denies threats or abuse. Nutritional screening: No deficits noted. Tuberculosis screening: No symptoms or risk factors identified. Assessment: 22:12 General: Appears in no apparent distress. comfortable, Behavior is calm, cooperative, jb4 appropriate for age. Pain: Complains of pain in headache. Pain does not radiate. Pain currently is 4 out of 10 on a pain scale. Neuro: Level of Consciousness is awake, alert, obeys commands, Oriented to person. Cardiovascular: Patient's skin is warm and dry. Respiratory: Airway is patent Respiratory effort is even, unlabored, Respiratory pattern is regular, symmetrical, Breath sounds are clear bilaterally. GI: No signs and/or symptoms were reported involving the gastrointestinal system. : No signs and/or symptoms were reported regarding the genitourinary system. EENT: No signs and/or symptoms were reported regarding the EENT system. Derm: Skin is intact, Skin is pink, warm \\T\\ dry. Musculoskeletal: Circulation, motion, and sensation intact. Range of motion: intact in all extremities. 23:30 Reassessment: Patient appears in no apparent distress at this time. No changes from jb4 previously documented assessment. Patient and/or family updated on plan of care and expected duration. Pain level reassessed. Vital Signs: 22:13 BP 140 / 71; Pulse 82; Resp 18; Temp 99.6(A); Pulse Ox 96% on R/A; Weight 73.94 kg; tw5 Height 5 ft. 9 in. (175.26 cm); Pain 0/10; 23:30 BP 125 / 74; Pulse 80; Resp 22; Temp 99.3(R); Pulse Ox 96% on R/A; jb4 03/16 00:26 BP 133 / 68; Pulse 77; Resp 20; Pulse Ox 100% on R/A; kl 03/15 22:13 Body Mass Index 24.07 (73.94 kg, 175.26 cm) tw5 ED Course: 03/15 21:55 Patient arrived in ED. ja2 22:01 Terrell Jones, RN is Primary Nurse. jb4 22:03 Capo Somers MD is Attending Physician. sp3 22:12 Patient has correct armband on for positive identification. Bed in low position. Call jb4 light in reach. Side rails up X 1. Client placed on continuous cardiac and pulse oximetry monitoring. NIBP monitoring applied. color television console monitor on. 22:17 Triage completed. tw5 22:17 Patient placed. EKG completed in triage. Results shown to MD. EKG completed in triage. tw5 Results shown to MD. 22:20 No provider procedures requiring assistance completed. tw5 22:37 Protime (+inr) Sent. jb4 22:37 Lactate w/ 2H reflex if indic. Sent. jb4 22:37 CMP Sent. jb4 22:37 CBC with Diff Sent. jb4 23:04 Blood Culture Adult (2) Sent. jb4 23:13 Head Brain Wo Cont In Process Unspecified. EDMS 23:43 Urine Microscopic Only Sent. jb4 23:43 CMP Sent. jb4 03/16 00:27 IV discontinued, intact, bleeding controlled, No redness/swelling at site. Pressure kl dressing applied. Administered Medications: No medications were administered Medication: 03/15 22:12 VIS not applicable for this client. jb4 Outcome: 03/16 00:15 Discharge ordered by . sp3 00:27 Discharged to home via wheelchair, with family. kl 00:27 Condition: stable 00:27 Discharge instructions given to family, Instructed on discharge instructions, follow up and referral plans. Demonstrated understanding of instructions. 00:27 Patient left the ED. kl Signatures: Dispatcher [employer] Noni Berman RN RN kl Bryson, James, RN RN jb4 Capo Somers MD MD sp3 Cielo Avilez Tiffany 5
--- NOTE | 2022-03-16 00:16 | EDPHYS ---
Physician Documentation [facility] Name: Thien Phan Jr Age: 81 yrs Sex: Male : 1940 Arrival Date: 03/15/2022 Time: 21:55 Bed 8 Private MD: ED Physician Capo Somers HPI: 03/15 22:52 This 81 yrs old Male presents to ER via Wheelchair with complaints of Fall Injury, sp3 Fever. 22:52 81-year-old male with history of Alzheimer's, prior TIA presents to the ED from nursing [facility] facility [facility] the [address] from the hospital for alleged ground-level falls x2 and altered mental status. Initial reports of fever later found to be unfounded. Vital signs from the retirement as given to patient's demonstrated normal vital signs with a temperature of 99.1. We now states patient is more awake and at his baseline. History physical and review of systems otherwise limited secondary to dementia.. 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 - Social history:: Smoking status: Patient denies any tobacco usage or history of. ROS: 22:53 Unable to obtain ROS due to baseline dementia. sp3 Exam: 22:53 Constitutional: This is a well developed, well nourished patient who is awake, alert, sp3 and in no acute distress. Head/Face: Normocephalic, atraumatic. Eyes: Pupils equal round and reactive to light, extra-ocular motions intact. Lids and lashes normal. Conjunctiva and sclera are non-icteric and not injected. Cornea within normal limits. Periorbital areas with no swelling, redness, or edema. ENT: Nares patent. No nasal discharge, no septal abnormalities noted. External auditory canals are clear. Oropharynx with no redness, swelling, or masses, exudates, or evidence of obstruction, uvula midline. Mucous membranes moist. Neck: Trachea midline, no thyromegaly or masses palpated, and no cervical lymphadenopathy. Supple, full range of motion without nuchal rigidity, or vertebral point tenderness. No Meningismus. Chest/axilla: Normal chest wall appearance and motion. Nontender with no deformity. No lesions are appreciated. Cardiovascular: Regular rate and rhythm with a normal S1 and S2. No gallops, murmurs, or rubs. Normal PMI, no JVD. No pulse deficits. Respiratory: Lungs have equal breath sounds bilaterally, clear to auscultation and percussion. No rales, rhonchi or wheezes noted. No increased work of breathing, no retractions or nasal flaring. Skin: Warm, dry with normal turgor. Normal color with no rashes, no lesions, and no evidence of cellulitis. 22:53 Neuro: Patient is awake and alert, moving all extremities, with a grossly normal neurological exam. Exam is severely limited secondary to dementia there appears to be no focal deficits. Family also states he looks "like his normal baseline self".. 23:00 ECG was reviewed by the Attending Physician. EKG Demonstrates normal sinus rhythm at 77 sp3 bpm with incomplete right bundle branch block, nonspecific diffuse changes without evidence of acute ischemia. Vital Signs: 22:13 BP 140 / 71; Pulse 82; Resp 18; Temp 99.6(A); Pulse Ox 96% on R/A; Weight 73.94 kg; tw5 Height 5 ft. 9 in. (175.26 cm); Pain 0/10; 23:30 BP 125 / 74; Pulse 80; Resp 22; Temp 99.3(R); Pulse Ox 96% on R/A; jb4 03/16 00:26 BP 133 / 68; Pulse 77; Resp 20; Pulse Ox 100% on R/A; kl 03/15 22:13 Body Mass Index 24.07 (73.94 kg, 175.26 cm) tw5 MDM: 03/15 22:27 Patient medically screened. sp3 22:56 Data reviewed: vital signs, nurses notes. ED course: 81-year-old male with history of sp3 Alzheimer's dementia, prior TIAs, now presents with altered mental status. Differential diagnosis is broad includes intracranial hemorrhage, infection, sepsis, TIA, CVA, ACS, among others. However given his mental status rebound and current exam, I am not highly suspicious for acute findings or critical illness. He does have an advanced directive stating DNR/DNI and according to family, his primary team is giving him approximately 6 to 10 months of further survival. They do not want anything aggressive done. We will work patient up and if work-up is negative, will discharge patient back to his living facility. He is in agreement with this plan and all questions were answered.. 03/16 00:14 ED course: CT scan of the head and laboratory values are normal including urine sp3 analysis and lactate. Patient continues to have grossly normal neurological exam and we will discharge patient home at this time.. 03/15 22:27 Order name: Blood Culture Adult (2) sp3 03/15 22:27 Order name: CBC with Diff; Complete Time: 00:13 sp3 03/15 22:27 Order name: CMP sp3 03/15 22:27 Order name: Lactate w/ 2H reflex if indic.; Complete Time: 00:13 sp3 03/15 22:27 Order name: Protime (+inr); Complete Time: 00:13 sp3 03/15 22:27 Order name: Urine Microscopic Only; Complete Time: 00:13 sp3 03/15 22:27 Order name: EKG; Complete Time: 22:28 sp3 03/15 22:27 Order name: Cardiac monitoring; Complete Time: 22:37 sp3 03/15 22:27 Order name: EKG - Nurse/Tech; Complete Time: 23:04 sp3 03/15 22:27 Order name: IV Saline Lock - Large Bore; Complete Time: 22:27 sp3 03/15 22:27 Order name: Labs collected and sent; Complete Time: 22:27 sp3 03/15 22:27 Order name: CT Head Brain wo Cont sp3 03/15 22:31 Order name: Head Brain Wo Cont; Complete Time: 00:13 EDMS 03/15 23:43 Order name: Urine Dipstick-Ancillary; Complete Time: 00:13 EDMS 03/15 22:27 Order name: O2 Per Protocol; Complete Time: 22:27 sp3 03/15 22:27 Order name: O2 Sat Monitoring; Complete Time: 22:27 sp3 03/15 22:27 Order name: Urine Dipstick-Ancillary (obtain specimen); Complete Time: 23:43 sp3 03/15 22:27 Order name: Vital Signs; Complete Time: 22:27 sp3 03/15 22:27 Order name: Rectal Temp; Complete Time: 23:43 sp3 03/15 22:27 Order name: NPO; Complete Time: 22:27 sp3 03/15 23:21 Order name: Labs - recollect needed: green top; Complete Time: 23:46 mw2 Administered Medications: No medications were administered Disposition Summary: 03/16/22 00:15 Discharge Ordered Location: Home sp3 Condition: Stable sp3 Diagnosis - Alzheimer's disease, unspecified sp3 Followup: sp3 - With: Private Physician - When: Upon discharge from the Emergency Department - Reason: Continuance of care Discharge Instructions: - Discharge Summary Sheet sp3 - Alzheimer's Disease sp3 Forms: - Medication Reconciliation Form sp3 - Thank You Letter sp3 - Antibiotic Education sp3 - Prescription Opioid Use sp3 Signatures: Dispatcher [employer] EDAndrés Rubin mw2 Capo Somers MD MD sp3 Anupama Carpio tw5
[2022-03-16 00:27] LABS: Albumin 3.3 g/dL (3.4-5.0); Bilirubin Total 0.5 mg/dL (0.2-1.0); Potassium 3.9 mmol/L (3.5-5.1); Protein, Total 7.2 g/dL (6.4-8.2)
[2022-03-16 00:42] VITALS: TEMP 99.3
[2022-03-16 00:43] VITALS: BP 133/68; O2SAT 100
--- NOTE | 2022-03-16 16:02 | EKG ---
Test Date: 2022-03-15 Test Time: 22:57:11 Boiler Testing Technician: NUHA MEASUREMENT RESULTS: Intervals: Rate: 77 AK: 154 QRSD: 150 QT: 410 QTc: 463 [place]: P: 57 AK: 154 QRS: -34 T: 8 INTERPRETIVE STATEMENTS: Normal sinus rhythm Left axis deviation Right bundle branch block Minimal voltage criteria for LVH, may be normal variant Inferior infarct, age undetermined Abnormal ECG Compared to ECG 01/20/2020 14:03:32 Left-axis deviation now present Right bundle-branch block now present Myocardial infarct finding still present Electronically Signed On 03-16-22 16:01:13 FIELD HANDYMAN by Zachary Chapman
== END 2022-03-16 00:27 | disposition home or self-care (01) ==
LOC: ER 21:52
DX: G30.9 Alzheimer's disease, unspecified (principal); F02.80 Dementia in other diseases classified elsewhere, unspecified severity, without behavioral disturbance, psychotic disturbance, mood disturbance, and anxiety; Z86.73 Personal history of transient ischemic attack (TIA), and cerebral infarction without residual deficits; Z88.8 Allergy status to other drugs, medicaments and biological substances
CPT/HCPCS: 36415; 70450; 80053; 81003; 81015; 83605; 85025; 85610; 87040; 93005; 99284

== ENCOUNTER 2022-08-30 06:08 | Emergency (ER) | payer OTHER ==
--- OUTSIDE RECORDS SUMMARY | 2022-08-30 06:11 | XMS REPORT | Continuity of Care Document ---
:1940 Author Organization [facility] t Address [address] [facility] [address] [place] [address] Care Team Providers Name Role Phone Amanda Swapnil Darrell Primary Care Physician Ed Goyal MD Attending Clinician ED GOYAL Attending Clinician Unavailable ED GOYAL Attending Clinician Unavailable Vimal Woodard Attending Clinician Doctor Unassigned, [place] Attending Clinician Unavailable Daniella Valdes Attending Clinician Kirt Hopper Attending Clinician Payers Payer Name Policy Type Policy Number Effective Date Expiration Date S ource Problems Condition Condition Condition Status Onset Resolution Last Treating Co mments Source Name Details Category Date Date Treatment Clinician Date Alzheimer' Alzheimer' Disease Active 2021-03 U nivers s disease s disease 2-20 ity of 00:00: [place] 00 Medical Branch Memory Memory Disease Active 2021-03 Univers loss loss 2-20 ity of 00:00: [place] 00 Medical Branch Sundowning Sundowning Disease Active 2021-03 U nivers 2-20 ity of 00:00: [place] 00 Medical Branch 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 Medical Group Allergic Allergic Problem Active 2018-07-26 Memoria rhinitis rhinitis - 22:02:27 l (disorder) (disorder) 00:00: Shar rmann Active 00 08/20/2013 Problem 07/26/2018 Data migrated from [facility] on 08/09/14. Medical Group DDC-COLONO DDC-COLON Diagnosis Active 2010-032011-01-26 Memoria SCOPY OSCOPY 03-14 09:50:00 l Active 00:00: [place] 01/12/2011 00 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 Transient Transient Problem Resolve 2018-07-26 Memoria ischemic ischemic d 22:02:27 l attack attack Gio (disorder) (disorder) Resolved Problem 07/26/2018 [facility] Group Allergies, Adverse Reactions, Alerts Allergy Allergy Status Severity Reaction(s) Onset Inactive Treating Comm ents Source Name Type Date Date Clinician GALANTAM DRUG Active High Anaphylaxis 2019-0 Uni vers INE INGREDI - ity of 00:00: [place] 00 Medical Branch Galantam Propensi Active Dizziness 2019-0 Uni vers ine ty to 19 ity of adverse 00:00: [place] reaction 00 Medical s to Branch drug Social History Social Habit Start Date Stop Date Quantity Comments Source Exposure to 2022-02-18 2022-02-28 Not sure [facility] SARS-CoV-2 00:00:00 14:44:00 [place] Medical (event) Branch Tobacco use and 2022-02-28 2022-02-28 Smokeless tobacco Un iversity of exposure 00:00:00 00:00:00 non-user [facility] Social History 2015-10-05 2015-10-05 [facility] adria 20:59:36 20:59:36 Sex [birth year] At [birth year] Universit y of 00:00:00 00:00:00 [facility] Smoking Status Start Date Stop Date Source Never smoked tobacco [facility] [place] [place] Medications Ordered Filled Start Stop Current Ordering Indication Dosage Frequency Signature Comments Components Source Medication Medication Date Date Medication? Clinician (SIG) Name Name lisinopriL 2021-0 Yes 5mg Take 5 mg Un conor 5 mg tablet 5-24 by mouth ity of 09:56: daily. [address] tamsulosin 2020-0 Yes Take by Univ ers 0.4 mg 24 5-24 mouth ity of hr capsule 09:56: daily. [address] lisinopriL 1-0 Yes 5mg Take 5 mg Un conor 5 mg tablet 5-24 by mouth ity of 09:56: daily. [address] tamsulosin 2020-0 Yes Take by Univ ers 0.4 mg 24 5-24 mouth ity of hr capsule 09:56: daily. [address] lisinopriL 1-0 Yes 5mg Take 5 mg Un conor 5 mg tablet 5-24 by mouth ity of 09:56: daily. [address] tamsulosin 2020-0 Yes Take by Univ ers 0.4 mg 24 5-24 mouth ity of hr capsule 09:56: daily. [address] lisinopriL 1-0 Yes 5mg Take 5 mg Un conor 5 mg tablet 5-24 by mouth ity of 09:56: daily. [address] tamsulosin 2020-0 Yes Take by Univ ers 0.4 mg 24 5-24 mouth ity of hr capsule 09:56: daily. [address] lisinopriL 1-0 Yes 5mg Take 5 mg Un conor 5 mg tablet 5-24 by mouth ity of 09:56: daily. [address] tamsulosin 1-0 Yes Take by Univ ers 0.4 mg 24 5-24 mouth ity of hr capsule 09:56: daily. [address] lisinopriL 1-0 Yes 5mg Take 5 mg Un conor 5 mg tablet 5-24 by mouth ity of 09:56: daily. [place] [address] Medical Branch tamsulosin 2020-0 Yes Take by Univ ers 0.4 mg 24 5-24 mouth ity of hr capsule 09:56: daily. [place] [address] Medical Branch lisinopriL 2020-0 Yes 5mg Take 5 mg Un conor 5 mg tablet 5-24 by mouth ity of 09:56: daily. [place] [address] Medical Branch tamsulosin 2020-0 Yes Take by Univ ers 0.4 mg 24 5-24 mouth ity of hr capsule 09:56: daily. [place] [address] Medical Branch lisinopriL 2020-0 Yes 5mg Take 5 mg Un conor 5 mg tablet 5-24 by mouth ity of 09:56: daily. [place] [address] Medical Branch tamsulosin 2020-0 Yes Take by Univ ers 0.4 mg 24 5-24 mouth ity of hr capsule 09:56: daily. [address] Branch lisinopriL 2020-0 Yes 5mg Take 5 mg Un conor 5 mg tablet 5-24 by mouth ity of 09:56: daily. [place] [address] Medical Branch tamsulosin 2020-0 Yes Take by Univ ers 0.4 mg 24 5-24 mouth ity of hr capsule 09:56: daily. [place] [address] Medical Branch lisinopriL 2020-0 Yes 5mg Take 5 mg Un conor 5 mg tablet 5-24 by mouth ity of 09:56: daily. [address] Branch tamsulosin 2020-0 Yes Take by Univ ers 0.4 mg 24 5-24 mouth ity of hr capsule 09:56: daily. [place] [address] Medical Branch lisinopriL 2020-0 Yes 5mg Take 5 mg Un conor 5 mg tablet 5-24 by mouth ity of 09:56: daily. [place] [address] Medical Branch tamsulosin 2020-0 Yes Take by Univ ers 0.4 mg 24 5-24 mouth ity of hr capsule 09:56: daily. [place] [address] Medical Branch QUEtiapine 2020-0 Yes 25mg Take [...] No 25mg Take 1 Univ ers (SEROQUEL) 7- 12-19 tablet by ity of 25 mg 00:00: 00:00 mouth at [place] tablet 00 :00 bedtime. Medical Branch QUEtiapine 2020-0 2022- No 25mg Take 1 Univ ers (SEROQUEL) 7- 12-19 tablet by ity of 25 mg 00:00: 00:00 mouth at [place] tablet 00 :00 bedtime. Medical Branch mirtazapine 2020-0 Yes 7.5mg Take 1 Uni vers 7.5 mg 4-14 tablet by ity of tablet 00:00: mouth at [place] 00 bedtime. Medical Branch mirtazapine 2020-0 Yes 7.5mg Take 1 Uni vers 7.5 mg 4-14 tablet by ity of tablet 00:00: mouth at [place] 00 bedtime. Medical Branch mirtazapine 2020-0 Yes 7.5mg Take 1 Uni vers 7.5 mg 4-14 tablet by ity of tablet 00:00: mouth at [place] 00 bedtime. Medical Branch mirtazapine 2020-0 Yes 7.5mg Take 1 Uni vers 7.5 mg 4-14 tablet by ity of tablet 00:00: mouth at [place] 00 bedtime. Medical Branch mirtazapine 2020-0 Yes 7.5mg Take 1 Uni vers 7.5 mg 4-14 tablet by ity of tablet 00:00: mouth at [place] [address] bedtime. Medical Branch mirtazapine 2020-0 Yes 7.5mg Take 1 Uni vers 7.5 mg 4-14 tablet by ity of tablet 00:00: mouth at [place] [address] bedtime. Medical Branch mirtazapine 2020-0 Yes 7.5mg Take 1 Uni vers 7.5 mg 4-14 tablet by ity of tablet 00:00: mouth at [place] [address] bedtime. Medical Branch mirtazapine 2020-0 Yes 7.5mg Take 1 Uni vers 7.5 mg 4-14 tablet by ity of tablet 00:00: mouth at [place] [address] bedtime. Medical Branch mirtazapine 2020-0 Yes 7.5mg Take 1 Uni vers 7.5 mg 4-14 tablet by ity of tablet 00:00: mouth at [place] [address] bedtime. Medical Branch mirtazapine 2020-0 Yes 7.5mg Take 1 Uni vers 7.5 mg 4-14 tablet by ity of tablet 00:00: mouth at [place] [address] bedtime. Medical Branch mirtazapine 2020-0 Yes 7.5mg Take 1 Uni vers 7.5 mg 4-14 tablet by ity of tablet 00:00: mouth at [place] [address] bedtime. Medical Branch Clotrimazol 2018- Yes 1 appl, Mem oria e 10 MG/ML 4-25 TOP, BID, l Topical 15:43: Right ear Tessa nn Solution 00 canal, X 10 day, # 30 mL, 0 Refill(s), Pharmacy: [facility] fluconazole Yes 200 mg = 1 Memoria 200 mg oral 4-25 tab, PO, l tablet 15:43: Daily, X Gio 00 10 day, # 10 tab, 0 Refill(s), Pharmacy: [facility] Clotrimazol 2018- Yes 1 appl, Mem oria e 10 MG/ML 4-25 TOP, BID, l Topical 15:43: Right ear Tessa nn Solution 00 canal, X 10 day, # 30 mL, 0 Refill(s), Pharmacy: [facility] fluconazole 2018- Yes 200 mg = 1 Memoria 200 mg oral 4-25 tab, PO, l tablet 15:43: Daily, X Gio 00 10 day, # 10 tab, 0 Refill(s), Pharmacy: [id number] Multi Yes 0 Memoria Vitamin+ 4-25 Refill(s) l 15:29: [place] 00 Multi 2018-0 Yes 0 Memoria Vitamin+ 4-25 Refill(s) l 15:29: [place] Amoxicillin 2018-0 Yes 875 mg = 1 Memoria 875 MG / 4-10 tab, PO, l Clavulanate 12:31: Q12H, X 10 [place] 125 MG Oral 00 day, # 20 Tablet tab, 0 [Augmentin Refill(s), 875-mg] Pharmacy: [id number] Amoxicillin 2018- Yes 875 mg = 1 Memoria 875 MG / 4-10 tab, PO, l Clavulanate 12:31: Q12H, X 10 [place] 125 MG Oral 00 day, # 20 Tablet tab, 0 [Augmentin Refill(s), 875-mg] Pharmacy: [id number] Immunizations Ordered Immunization Filled Immunization Date Status Commen ts Source Name Name diphtheria/pertussis 2013-08-20 Completed Bud rial , acel/tetanus 05:00:00 Gio adult<sup>1</sup> diphtheria/pertussis 2013-08-20 Completed Bud rial , acel/tetanus 05:00:00 Gio adult<sup>1</sup> Vital Signs Vital Name Observation Time Observation Value Comments Source Systolic blood 2022-02-28 19:51:00 112 mm[Hg] Univer sity of [facility] Diastolic blood 2022-02-28 19:51:00 63 mm[Hg] Unive rsity of [facility] Heart rate 2022-02-28 19:51:00 80 /min [facility] Body height 2022-02-28 19:51:00 175.3 cm [facility] Systolic blood 2021-08-30 14:01:00 115 mm[Hg] Univer sity of [facility] Diastolic blood 2021-08-30 14:01:00 72 mm[Hg] Unive rsity of [facility] Heart rate 2021-08-30 14:01:00 66 /min [facility] BMI Calculated 2018-07-24 14:52:00 [place] Weight 2018-07-24 14:52:00 [facility] [place] Height 2018-07-24 14:52:00 175.26 cm Memorial [place]io Systolic (mm Hg) 2018-07-24 14:52:00 Bud rial [place] Diastolic (mm Hg) 2018-07-24 14:52:00 Mem orial [place] Temperature Oral (F) 2018-07-24 14:52:00 98.1 F Memorial Gio Heart Rate 2018-07-24 14:52:00 Memorial [place] Weight 2018-07-05 15:19:00 [facility] [place] BMI Calculated 2018-07-05 15:19:00 Memori al [place] Height 2018-07-05 15:19:00 175.26 cm [facility] [place] Temperature Oral (F) 2018-07-05 15:19:00 98.4 F [facility] [place] Heart Rate 2018-07-05 15:19:00 Memorial [place]io Systolic (mm Hg) 2018-07-05 15:19:00 Bud rial [place] Diastolic (mm Hg) 2018-07-05 15:19:00 Mem orial [place] Systolic (mm Hg) 2018-07-04 12:12:00 Bud rial [place] Diastolic (mm Hg) 2018-07-04 12:12:00 Mem orial Gio Heart Rate 2018-07-04 12:12:00 [facility] [place] Temperature Oral (F) 2018-07-04 12:12:00 98.5 F [facility] [place] Weight 2018-07-04 12:12:00 [facility] [place] Systolic (mm Hg) 2018-06-20 12:09:00 Bud rial Gio Diastolic (mm Hg) 2018-06-20 12:09:00 Mem orial [place] Heart Rate 2018-06-20 12:09:00 Memorial Gio Temperature Oral (F) 2018-06-20 12:09:00 98.3 F [facility] [place] Weight 2018-06-20 12:09:00 [facility] [place] Procedures Procedure Date / Time Performed Performing Clinician Sour e Removal impacted cerumen 2018-07-05 15:49:00 Mem orial Gio requiring instrumentation, unilateral 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<sup>1</sup> Encounters Start End Encounter Admission Attending Care Care Encounter Source Date/Time Date/Time Type Type Clinicians Facility Department ID 2022-03-15 2022-03-15 [facility] [id number] Univers 00:00:00 00:00:00 [facility] [id number] ity of [place] [id number] Sandip as [place]?BLEA [id number] [address] OFFICE [facility] 2022-03-09 2022-03-09 [facility]phone [facility] [id number] Univers 00:00:00 00:00:00 [facility] [id number] ity of [place] [id number] Sandip as [place]?BLEA [id number] [address] OFFICE [facility] 2022-03-07 2022-03-07 [facility] [id number] Univers 00:00:00 00:00:00 [employer] [id number] it y of [place] [id number] Sandip as [place]?BLEA [id number] [address] OFFICE [facility] 2022-02-28 2022-02-28 [id number] Univers 13:30:00 15:24:57 VIMAL ity [facility] 2022-02-28 2022-02-28 [facility] [id number] [id number] Univers 13:30:00 15:24:[address] [facility] [id number] it y of [place] [id number] Sandip as [place]?BLEA [id number] [address] OFFICE [facility] 2022-02-23 2022-02-23 Telephone [facility] [id number] Univers 00:00:00 00:00:00 [facility] [id number] ity of [place] [id number] Sandip as [place]?BLEA [id number] [address] OFFICE [facility] 2021 2021 [facility]phone [facility] [id number] [id number] Univers 00:00:00 00:00:00 [facility] [id number] ity of [place] [id number] Sandip as [place]?BLEA [id number] [address] OFFICE [facility] 2021-08-31 2021-08-31 Telephone [facility] [id number] Univers 00:00:00 00:00:00 [facility] [id number] [facility] [id number] Sandip as [place]?BLEA [id number] [address] 2021-08-30 2021-08-30 Outpatient R ED GOYAL [facility] [id number] Univers 09:00:00 09:22:40 [facility] 2021-08-30 2021-08-30 Office [facility] 1.2.840.114 [id number] Univers 09:00:00 09:22:40 Visit [facility] [id number] [facility] [id number] Sandip as [place]?BLEA [id number] [address] OFFICE [facility] 2021-08-30 2021-08-30 Orders Doctor MICHAEL 1.2.840.114 [id number] Univers 00:00:00 00:00:00 Only Unassigned, ZARI [id number] ity of [place] [facility] [id number] Sandip as [id number] [address] 2021-04-07 2021-04-07 [facility] 1.2.840.114 [id number] Univers 00:00:00 00:00:00 [facility] [id number] [facility] 4.2.7.2.686 Sandip as [place]?BLEA [id number] [address] OFFICE [facility] 2021-04-07 2021-04-07 [facility]phone [facility] 1.2.840.114 [id number] Univers 00:00:00 00:00:00 Ed [facility] [id number] ity [facility] [id number] Sandip as SIOAMRA?BLEA [id number] [address] OFFICE [facility] 2021-04-07 2021-04-07 Orders Doctor MICHAEL 1.2.840.114 [id number] Univers 00:00:00 00:00:00 Only Unassigned, ZARI [id number] ity of [place] [facility] 4.2.7.2.686 Sandip as [id number] [address] 2021-03-22 2021-03-22 Office KIMBER Goyal 1.2.840.114 [id number] Univers 16:20:00 16:58:49 Visit Ed [facility] [id number] ity [facility] 4.2.7.2.686 Sandip as [place]?BLEA [id number] [address] OFFICE [facility] 2021-03-22 2021-03-22 Outpatient ED FAROOQ [facility] [id number] Univers 16:20:00 16:58:49 ED GOYAL [facility] 2021-03-22 2021-03-22 Outpatient ED FAROOQ [facility] [id number] Univers 16:20:00 16:20:00 ED GOYAL [facility] 2021-03-22 2021-03-22 Orders Doctor MICHAEL [id number] [id number] Univers 00:00:00 00:00:00 Only Unassigned, ZARI [id number] ity of [place] [facility] 4.2.7.2.686 Sandip as [id number] [address] 2020-08-03 2020-08-03 Outpatient ED FAROOQ [facility] [id number] Univers 09:40:00 09:40:00 ED GOYAL [facility] 2020-05-08 2020-05-08 Outpatient ED FAROOQ [facility] [id number] Univers 14:20:00 14:20:00 JAY JAY, ED [facility] 2019-10-08 2019-10-08 Office Jay Jay [facility] 1.2.840.114 [id number] 15:35:00 15:35:00 Visit Ed Jimenez [id number] [place] 4.2.7.2.686 Carol [id number] [address] 2019-10-08 2019-10-08 Outpatient ED FAROOQ [facility] [id number] Univers 10:40:00 10:40:[address] [facility] 2019-08-30 2019-08-30 Outpatient ED FAROOQ [facility] [id number] Univers 14:40:00 14:40:[address] [facility] 2019-05-10 2019-05-10 Outpatient ED FAROOQ [facility] [id number] Univers 15:20:00 15:20:[address] [facility] 2018-07-24 2018-07-25 Outpatient nullFlavo [facility] [id number] Memoria 15:15:00 04:59:59 r Otolaryngol 04 l ogy [place] [facility] 2018-07-24 2018-07-25 Outpatient nullFlavo [facility] [id number] Memoria 15:15:00 04:59:59 r Otolaryngol 04 l ogy [place] [facility] 2018-07-24 2018-07-24 Outpatient Donepudi, [facility] [id number] 10:15:00 23:59:59 Sreekrishna 04 [facility] 2018-07-24 2018-07-24 Outpatient IE IE [id number] Memoria 10:15:00 10:15:00 04 l Gio 2018-07-05 2018-07-06 Outpatient nullFlavo [facility] [id number] Memoria 15:30:00 04:59:59 r Otolaryngol 03 l ogy [place] [facility] 2018-07-05 2018-07-06 Outpatient nullFlavo [facility] [id number] Memoria 15:30:00 04:59:59 r Otolaryngol 03 l ogy [place] [facility] 2018-07-04 2018-07-06 Phone nullFlavo [facility] [id number] Memoria 13:18:00 04:59:59 Message r Medicine 00 edmund Powers 2018-07-04 2018-07-06 Phone nullFlavo [facility] [id number] Memoria 13:18:00 04:59:59 Message r Medicine 00 edmund Powers 2018-07-05 2018-07-05 Outpatient Hopper, [facility] [id number] 10:30:00 23:59:59 [facility] 2018-07-05 2018-07-05 Outpatient Hopper, [facility] [id number] 10:30:00 23:59:59 [facility] 2018-07-04 2018-07-05 Outpatient MHMG [facility] [id number] 08:18:00 23:59:59 2018-07-04 2018-07-05 Outpatient MHMG [facility] [id number] 08:18:00 23:59:59 2018-07-05 2018-07-05 Outpatient MHIE MHIE [id number] Memoria 10:30:00 10:30:00 03 edmund [place] 2018-07-04 2018-07-05 Outpatient nullFlavo [facility] 3 [id number] Memoria 12:15:00 04:59:59 r Medicine 02 edmund Powers 2018-07-04 2018-07-05 Outpatient nullFlavo [facility] 3 [id number] Memoria 12:15:00 04:59:59 r Medicine 02 edmund Powers 2018-07-04 2018-07-04 Outpatient Hopper, [facility] MG [id number] 07:15:00 23:59:59 [facility] 2018-07-04 2018-07-04 Outpatient MHIE MHIE [id number] Memoria 07:15:00 07:15:00 02 edmund Powers 2018-06-20 2018-06-21 Outpatient nullFlavo [facility] 3 [id number] Memoria 12:00:00 04:59:59 r Medicine 01 edmund Powers 2018-06-20 2018-06-21 Outpatient nullFlavo [facility] 3 [id number] Memoria 12:00:00 04:59:59 r Medicine 01 edmund Powers 2018-06-20 2018-06-20 Outpatient Hopper, [facility] [id number] 07:00:00 23:59:59 K[place] 2018-06-20 2018-06-20 Outpatient IE IE [id number] Memoria 07:00:00 07:00:00 01 edmund Powers 2011-01-26 2011-01-26 Outpatient nullFlavo [facility] [id number] Memoria 08:27:00 08:27:00 r Medical 00 Rogelio Powers 2011-01-26 2011-01-26 Outpatient nullFlavo [facility] [id number] Memoria 08:27:00 08:27:[address] [place] [address] Gio Results This patient has no known results.
[2022-08-30 06:56] LABS: Absolute Lymphocytes (CBC) 1.4 K/uL (0.7-4.9); Hematocrit 42.8 % (39.6-49.0); Lymphocytes % 10.4 % (15.3-44.8); MCV 92.6 fL (80-100); MPV 8.1 fL (7.6-11.3); RBC Red Blood Cell Count 4.62 M/uL (4.33-5.43)
[2022-08-30 07:00] LABS: Protime INR 0.98
[2022-08-30 07:06] LABS: Potassium 4.3 mEq/L (3.5-5.1)
--- NOTE | 2022-08-30 08:09 | EDPHYS ---
Physician Documentation [facility] Name: Thien Phan Jr Age: 81 yrs Sex: Male : 1940 Arrival Date: 08/30/2022 Time: 06:08 Bed 6 Private MD: ED Physician Yannick Hart HPI: 08/30 06:15 This 81 yrs old Male presents to ER via Unassigned with complaints of falls. rn 06:15 Onset: The symptoms/episode began/occurred at an unknown time. Associated injuries: The rn patient sustained injury to the head, injury to the chest. Severity of symptoms: At their worst the symptoms were mild, in the emergency department the symptoms are unchanged. The patient has experienced similar episodes in the past. Pt with severe dementia, reports repeated falls over the last few days. reports head injury, leg injury. EMS reports oxygen low at 85%, no known chronic lung problems. Pt doesn't recall falls. Pt reports "hurts all over". . 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 - Social history:: Smoking status: Patient denies any tobacco usage or history of. - History obtained from: , EMS. ROS: 06:18 Unable to obtain ROS due to baseline dementia. rn 08:10 Constitutional: Negative for fever, chills, and weight loss, Eyes: Negative for injury, kdr pain, redness, and discharge. Exam: 06:18 Constitutional: This is a well developed, well nourished patient who is awake, alert, rn appears in pain when moved over from EMS stretcher. Head/Face: Normocephalic, atraumatic. Eyes: Pupils equal round and reactive to light, extra-ocular motions intact Neck: No midlline cervical tenderness Cardiovascular: Regular rate and rhythm . No pulse deficits. Respiratory: + tachypnea, no retractions Abdomen/GI: soft, mild left sided abd tenderness, no ecchymosis, no distension Skin: Warm, dry MS/ Extremity: Pulses equal, no cyanosis. Neurovascular intact. Full, normal range of motion. abrasion to LLE overlying proximal fibula. Normal passive ROM all 4 extremities. Neuro: Awake and alert, GCS 15 Vital Signs: 06:16 BP 110 / 61; Pulse 85; Resp 24 S; Temp 99(TE); Pulse Ox 95% on 2 lpm NC; Weight 81.65 as6 kg; 07:11 BP 127 / 66; Pulse 82; Resp 16; Pulse Ox 97% on 2 lpm NC; cm10 08:10 BP 123 / 75; Pulse 87; Resp 16; Pulse Ox 96% on 2 lpm NC; cm10 09:45 BP 117 / 76; Pulse 80; Resp 18; Pulse Ox 92% on 2 lpm NC; cm10 10:15 BP 116 / 65; Pulse 81; Resp 16; Pulse Ox 92% on 2 lpm NC; cm10 12:31 BP 140 / 85; Pulse 88; Resp 16; Pulse Ox 95% on R/A; cm10 MDM: 06:13 Patient medically screened. rn 06:57 Transition of care: After a detail discussion of the patient's case, care is rn transferred to Yannikc Hart MD. 08:05 Data reviewed: vital signs, nurses notes, lab test result(s), radiologic studies. kdr Management of patient was discussed with the following: Product Strategy Director: Dr. Estrada - confirmed end stage dementia with plan to not intervene in any way but rather will let nature take its course.. 09:51 ED course: Awaiting social service manager consult for placement. kdr 10:27 ED course: director volunteer services has visited with the patient's and they have determined kdr that he is eligible for hospice care. director volunteer services has arranged for the hospice care services to meet the and patient at the home to finalize the details. was happy with the care provided the plan for discharge and follow-up with hospice care.. 10:50 ED course: Patient's came to the desk stating that she thought the patient had kdr right lower quadrant pain. She asked that although she did not want any prior studies done, she did wish that the abdominal CT be ordered.. 08/30 06:14 Order name: Basic Metabolic Panel; Complete Time: 10:56 rn 08/30 06:14 Order name: CBC with Diff; Complete Time: 10:56 rn 08/30 06:14 Order name: Protime (+inr); Complete Time: 10:56 rn 08/30 06:14 Order name: Ptt, Activated; Complete Time: 10:56 rn 08/30 06:14 Order name: XRAY Chest (1 view) rn 08/30 06:14 Order name: XRAY Tib Fib LEFT rn 08/30 10:49 Order name: CT Abd/Pelvis - IV Contrast Only; Complete Time: 12:05 kdr 08/30 08:25 Order name: Social Service Consult EDMS 08/30 06:14 Order name: Labs collected and sent; Complete Time: 06:51 rn Administered Medications: 11:13 Drug: morphine IVP or IV 2 mg {Note: feels like he has abdominal pain. .} Route: ll1 IVP; Infused Over: 4 mins; Site: right forearm; 12:33 Follow up: Response: No adverse reaction cm10 Disposition Summary: 08/30/22 08:09 Discharge Ordered Location: Home kdr Problem: an ongoing problem kdr Symptoms: are unchanged kdr Condition: Stable kdr Diagnosis - Dementia in other diseases classified elsewhere with behavioral disturbance kdr - Altered mental status, unspecified kdr Followup: kdr - With: Private Physician - When: 2 - 3 days - Reason: If symptoms return, Further diagnostic work-up, Recheck today's complaints, Continuance of care, Re-evaluation by your physician Discharge Instructions: - Discharge Summary Sheet kdr - Dementia kdr Forms: - Medication Reconciliation Form kdr - Thank You Letter kdr Signatures: Dispatcher [employer] EDMS Yannick Hart MD MD kdr Petr Maharaj MD MD rn Lewis, Lynsay, RN RN ll1 Adrien Alvarado RN RN as6 Natalie Moody RN cm10 Corrections: (The following items were deleted from the chart) 07:25 06:15 Head C Spine CAP W Con+CT.RAD.BRZ ordered. EDPR EDPR
--- NOTE | 2022-08-30 08:09 | ER ---
Nurse's Notes [facility] Name: Thien Phan Jr Age: 81 yrs Sex: Male : 1940 Arrival Date: 08/30/2022 Time: 06:08 Bed 6 Private MD: Diagnosis: Dementia in other diseases classified elsewhere with behavioral disturbance;Altered mental status, unspecified Presentation: 08/30 06:16 Chief complaint: EMS states: called out for a fall that happened approx 0400 AM. pt was as6 found in between bed and wall. Coronavirus screen: At this time, the client does not indicate any symptoms associated with coronavirus-19. Ebola Screen: No symptoms or risks identified at this time. Initial Sepsis Screen: Does the patient meet any 2 criteria? No. Patient's initial sepsis screen is negative. Does the patient have a suspected source of infection? No. Patient's initial sepsis screen is negative. Risk Assessment: Do you want to hurt yourself or someone else? Patient reports no desire to harm self or others. Onset of symptoms was August 30, 2022. 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 - Social history:: Smoking status: Patient denies any tobacco usage or history of. - History obtained from: , EMS. Screenin:38 [facility] ED Fall Risk Assessment (Adult) History of falling in the last 3 months, lg3 including since admission Yes- fall prone (multiple falls) (3 pts) Confusion or Disorientation Yes (5 pts) Intoxicated or Sedated No (0 pts) Impaired Gait Yes (1 pt) Mobility Assist Device Used Yes (1 pt) Altered Elimination Yes (1 pt) Score/Fall Risk Level 3 or more points = High Risk Oriented to surroundings, Maintained a safe environment. Abuse screen: Denies threats or abuse. Denies injuries from another. Nutritional screening: No deficits noted. Tuberculosis screening: No symptoms or risk factors identified. Assessment: 06:38 General: Appears in no apparent distress. comfortable, Behavior is calm, cooperative. lg3 Pain: Complains of pain in chest and left leg. Neuro: Medley Agitation-Sedation Scale (RASS): 0 - Alert and Calm Level of Consciousness is awake, confused, Oriented to person. Cardiovascular: No deficits noted. Capillary refill < 3 seconds Clubbing of nail beds is absent JVD is absent Patient's skin is warm and dry. Respiratory: Airway is patent Respiratory effort is even, weak, Respiratory pattern is tachypnea. GI: No deficits noted. No signs and/or symptoms were reported involving the gastrointestinal system. : No deficits noted. No signs and/or symptoms were reported regarding the genitourinary system. EENT: No deficits noted. No signs and/or symptoms were reported regarding the EENT system. Derm: Skin is intact, is thin, Skin is dry, Skin is normal, Skin temperature is warm Wound noted left knee. Musculoskeletal: Circulation, motion, and sensation intact. 07:09 Reassessment: Assumed care of patient at this time. Patient sleeping, respirations even cm10 and unlabored on 2L via NC. Updated patient's on plan of care. Call light in reach. Pt remains on monitor.. 08:25 Reassessment: No changes from previously documented assessment. Brief changed, ll1 tolerated well. at BS. 08:30 Reassessment: No changes from previously documented assessment. Patient and/or family ll1 updated on plan of care and expected duration. Pain level reassessed. repositioned, given ice chips. Appears comfortable. 09:42 Reassessment: No changes from previously documented assessment. Patient and/or family cm10 updated on plan of care and expected duration. Pain level reassessed. 10:01 Reassessment: Supervisor Clam Bed at bedside. . aa5 11:10 Reassessment: No changes from previously documented assessment. Back from CT. Patient ll1 states he has no pain, but his feels like he is having abdominal pain. Morphine IV given. Vital Signs: 06:16 BP 110 / 61; Pulse 85; Resp 24 S; Temp 99(TE); Pulse Ox 95% on 2 lpm NC; Weight 81.65 as6 kg; 07:11 BP 127 / 66; Pulse 82; Resp 16; Pulse Ox 97% on 2 lpm NC; cm10 08:10 BP 123 / 75; Pulse 87; Resp 16; Pulse Ox 96% on 2 lpm NC; cm10 09:45 BP 117 / 76; Pulse 80; Resp 18; Pulse Ox 92% on 2 lpm NC; cm10 10:15 BP 116 / 65; Pulse 81; Resp 16; Pulse Ox 92% on 2 lpm NC; cm10 12:31 BP 140 / 85; Pulse 88; Resp 16; Pulse Ox 95% on R/A; cm10 ED Course: 06:13 Patient arrived in ED. rn 06:13 Petr Maharaj MD is Attending Physician. rn 06:16 Arm band placed on. as6 06:18 Triage completed. as6 06:37 Adrien Alvarado, RN is Primary Nurse. as6 06:38 XRAY Chest (1 view) In Process Unspecified. EDMS 06:38 XRAY Tib Fib LEFT In Process Unspecified. EDMS 06:38 Patient has correct armband on for positive identification. Placed in gown. Bed in low lg3 position. Call light in reach. Side rails up X2. Client placed on continuous cardiac and pulse oximetry monitoring. NIBP monitoring applied. Door closed. Noise minimized. Warm blanket given. Family accompanied patient. 06:38 Oxygen administration via nasal cannula \\T\\ 2L/min. lg3 06:51 Inserted saline lock: 22 gauge in right forearm, using aseptic technique. Blood lg3 collected. 06:51 Protime (+inr) Sent. lg3 06:51 Ptt, Activated Sent. lg3 06:51 Basic Metabolic Panel Sent. lg3 06:51 CBC with Diff Sent. lg3 07:[address] scan. Provider aware. cm10 07:23 Attending Physician role handed off by Petr Maharaj MD kdr 07:23 Yannick Hart MD is Attending Physician. kdr 07:23 ED physician to see patient. cm10 07:29 Primary Nurse role handed off by Adrien Alvarado, ISMA bp 07:29 Román Abreu, ISMA is Primary Nurse. bp 09:59 support worker to see patient. cm10 10:45 Report given to Kendy at [facility]. cm10 10:[address] cm10 11:09 CT Abd/Pelvis - IV Contrast Only In Process Unspecified. EDMS 11:09 Patient moved back from CT. cm10 12:32 Attempting to move patient to wheelchair for transport back to facility and patient cm10 complaining of increased pain. EMS to be called for transport back to facility. 12:33 No provider procedures requiring assistance completed. IV discontinued, intact, cm10 bleeding controlled, No redness/swelling at site. Pressure dressing applied. Administered Medications: 11:13 Drug: morphine IVP or IV 2 mg {Note: feels like he has abdominal pain. .} Route: ll1 IVP; Infused Over: 4 mins; Site: right forearm; 12:33 Follow up: Response: No adverse reaction cm10 Medication: 12:33 VIS not applicable for this client. cm10 Outcome: 08:09 Discharge ordered by MD. kdr 13:04 Discharged to skilled nursing. Report called to [facility] cm10 13:04 Discharged to Pt leaving via [facility]. 13:04 Condition: good 13:04 Discharge instructions given to family, Instructed on discharge instructions, follow up and referral plans. 13:08 Patient left the ED. cm10 Signatures: Dispatcher [employer] EDMS Yannick Hart MD MD kdr Nieto, Roman, MD MD rn Rosaura Barragan, RN RN aa5 Román Abreu RN RN bp Francoise Romero, RN RN lg3 Timbo Reyes, RN RN ll1 Adrien Alvarado, ISMA RN as6 Natalie Moody, ISMA RN cm10 Corrections: (The following items were deleted from the chart) 10:48 10:45 Report given to Mi at [facility]. cm10 cm10
[2022-08-30] MEDS ORDERED: MORPHINE 2 MG/ML SYR ONE (11:09)
--- NOTE | 2022-08-30 11:23 | RAD REPORT ---
EXAM DESCRIPTION: CT - Abdomen Pelvis W Contrast - 08/30/2022 11:07 am CLINICAL HISTORY: ABD PAIN COMPARISON: No comparisons TECHNIQUE: Thin cut axial CT imaging of the abdomen and pelvis was performed following intravenous a dministration of Isovue 300. Multiplanar reformats were generated and reviewed. All CT scans are performed using dose optimization technique as appropriate and may include automated exposure control or mA/KV adjustment according to patient size. FINDINGS: Bibasilar atelectatic changes. . The liver, spleen, and pancreas show no suspicious findings. Single calcified gallstone near the gall bladder fundus. No intra or extrahepatic biliary ductal dilation. Symmetric renal function is seen with no hydronephrosis or suspicious renal mass. Punctate radiodensi ties along the left superior renal pole and right renal midpole, not exceeding 3 millimeter, suggesti ve of nonobstructing calculi. No dilated bowel loops or bowel wall thickening. No free air, free fluid or inflammatory stranding. N o hernia, mass or bulky lymphadenopathy. The urinary bladder is without significant finding. Prostato megaly. Moderate superior endplate compression deformity at L2 and inferior endplate compression deformity at T11. Mild superior endplate compression deformity at L3, with lucent fracture line seen along the ri ght lateral anterior aspect of the vertebral body. Schmorl's node versus mild central wedge compressi on deformity at L4. IMPRESSION: Multilevel vertebral body compression deformities as above. Findings suggestive of acute or recent compression fracture at L3. No other acute intra-abdominal process. Incidental findings including cholelithiasis and prostatomegaly.
[2022-08-30 13:26] VITALS: TEMP 99
[2022-08-30 13:33] VITALS: BP 140/85; O2SAT 95
--- NOTE | 2022-08-30 15:44 | RAD REPORT ---
EXAM DESCRIPTION: RAD - Tib Fib Left - 08/30/2022 6:37 am CLINICAL HISTORY: PAIN COMPARISON: None. TECHNIQUE: XR TIBIA FIBULA 08/30/2022 6:14 AM CDT FINDINGS: There is no fracture. Joint spaces are preserved. Soft tissues are unremarkable. IMPRESSION: No acute osseous findings. Electronically signed by: Siddharth Curry MD 08/30/2022 6:50 AM CDT Due to temporary technical issues with the PACS/Fluency reporting system, reports are being signed by the in house radiologists without review as a courtesy to insure prompt reporting. The interpreting radiologist is fully responsible for the content of the report.
--- NOTE | 2022-08-30 15:46 | RAD REPORT ---
EXAM DESCRIPTION: RAD - Chest Single View - 08/30/2022 6:37 am CLINICAL HISTORY: BLUNT CHEST TRAUMA COMPARISON: None. TECHNIQUE: XR CHEST 1 VIEW 08/30/2022 6:14 AM CDT FINDINGS: The heart is moderately enlarged. There are mild diffuse interstitial changes throughout b oth lungs. There is no pleural effusion. There is no pneumothorax. There are no acute osseous finding s. IMPRESSION: No definite acute posttraumatic findings. Electronically signed by: Siddharth Curry MD 08/30/2022 6:48 AM CDT Due to temporary technical issues with the PACS/Fluency reporting system, reports are being signed by the in house radiologists without review as a courtesy to insure prompt reporting. The interpreting radiologist is fully responsible for the content of the report.
== END 2022-08-30 13:08 | disposition home or self-care (01) ==
LOC: ER 06:08
DX: R41.82 Altered mental status, unspecified (principal); G30.9 Alzheimer's disease, unspecified; F02.818 Dementia in other diseases classified elsewhere, unspecified severity, with other behavioral disturbance; Z88.8 Allergy status to other drugs, medicaments and biological substances
CPT/HCPCS: 85025; 80048; 36415; 85610; 85730; 74177; 71045; 73590; Q9967; J2270

== ENCOUNTER → 2023-03-21 | Emergency (ER) | payer OTHER ==
--- NOTE | 2023-03-21 18:41 | ER ---
Nurse's Notes [facility] Name: Thien Phan Jr Age: 82 yrs Sex: Male : 1940 Arrival Date: 03/21/2023 Time: 16:39 Bed 13 Private MD: Diagnosis: Encounter for palliative care;Abdominal pain, Generalized Presentation: 03/21 16:45 Chief complaint: EMS states: SENT BY [facility] FOR PALPABLE ABDOMINAL MASS. bp Coronavirus screen: At this time, the client does not indicate any symptoms associated with coronavirus-19. Ebola Screen: No symptoms or risks identified at this time. Initial Sepsis Screen: Does the patient meet any 2 criteria? No. Patient's initial sepsis screen is negative. Does the patient have a suspected source of infection? No. Patient's initial sepsis screen is negative. Risk Assessment: Do you want to hurt yourself or someone else? Unable to obtain. Onset of symptoms is unknown. 16:45 Method Of Arrival: EMS: [facility] bp 16:45 Acuity: MIRIAM 3 bp Triage Assessment: 16:45 General: Appears in no apparent distress. Behavior is quiet. bp 16:45 Pain: Unable to use pain scale. Does not appear to understand pain scale. bp Historical: - Allergies: 17:16 Depakote; bp - PMHx: 17:16 TIA; Alzheimers; bp - Immunization history:: Adult Immunizations unknown. - Social history:: Smoking status: unknown. Screenin:40 [facility] ED Fall Risk Assessment (Adult) History of falling in the last 3 months, bp including since admission No falls in past 3 months (0 pts). Abuse screen: Denies threats or abuse. Denies injuries from another. Nutritional screening: No deficits noted. Tuberculosis screening: No symptoms or risk factors identified. Assessment: 18:39 Reassessment: EMS AT B/S FOR TRANSPORT. bp Vital Signs: 16:45 BP 150 / 80; Pulse 100; Resp 14; Temp 98; Pulse Ox 95% ; bp ED Course: 16:45 Patient arrived in ED. bp 16:45 Arm band placed on. bp 16:46 Esthela Siddiqui MD is Attending Physician. gb1 16:51 Román Abreu, ISMA is Primary Nurse. bp 17:16 Triage completed. bp 18:40 Patient has correct armband on for positive identification. bp 18:40 No provider procedures requiring assistance completed. Patient did not have IV access bp during this emergency room visit. Administered Medications: No medications were administered Outcome: 17:11 Discharge ordered by gb1 18:41 Discharged to shelter. Report called to [facility] bp 18:41 Condition: stable 18:41 Discharge instructions given to shelter, 18:41 Patient left the ED. bp Signatures: Román Abreu, RN RN bp Artur, MD SONI Proctor gb1
--- NOTE | 2023-03-21 18:41 | EDPHYS ---
Physician Documentation [facility] Name: Thien Phan Jr Age: 82 yrs Sex: Male : 1940 Arrival Date: 03/21/2023 Time: 16:39 Bed 13 Private MD: ED Physician Esthela Siddiqui HPI: 03/21 17:39 This 82 yrs old Male presents to ER via EMS with complaints of ABDOMINAL MASS.gb1 17:39 Mr. Phan is a very pleasant 82-year-old male currently on hospice at a skilled [facility] nursing facility here after an abdominal exam was performed by someone at the assisted living facility and determined to be a concern as the patient appeared to be in pain. The patient's is at the bedside here today reporting that the patient is DNR and she currently does not want any emergency department procedures or tests from the patient. Patient is not reported to be vomiting and he is currently taking pain medication regularly on hospice care. Patient also has a history of Alzheimer's dementia. He is nonverbal at baseline.. Historical: - Allergies: 17:16 Depakote; bp - PMHx: 17:16 TIA; Alzheimers; bp - Immunization history:: Adult Immunizations unknown. - Social history:: Smoking status: unknown. ROS: 17:39 Unable to obtain ROS due to baseline dementia, gb1 Exam: 17:39 Constitutional: This is a well developed, well nourished patient who is awake, alert, gb1 and in no acute distress. Head/Face: Normocephalic, atraumatic. Eyes: Pupils equal round and reactive to light, extra-ocular motions intact. Lids and lashes normal. Conjunctiva and sclera are non-icteric and not injected. Cornea within normal limits. Periorbital areas with no swelling, redness, or edema. ENT: Nares patent. No nasal discharge, no septal abnormalities noted. Tympanic membranes are normal and external auditory canals are clear. Oropharynx with no redness, swelling, or masses, exudates, or evidence of obstruction, uvula midline. Mucous membranes moist. Neck: Trachea midline, no thyromegaly or masses palpated, and no cervical lymphadenopathy. Supple, full range of motion without nuchal rigidity, or vertebral point tenderness. No Meningismus. Chest/axilla: Normal chest wall appearance and motion. Nontender with no deformity. No lesions are appreciated. Cardiovascular: Regular rate and rhythm with a normal S1 and S2. No gallops, murmurs, or rubs. Normal PMI, no JVD. No pulse deficits. Respiratory: Lungs have equal breath sounds bilaterally, clear to auscultation and percussion. No rales, rhonchi or wheezes noted. No increased work of breathing, no retractions or nasal flaring. Back: No spinal tenderness. No costovertebral tenderness. Full range of motion. Skin: Warm, dry with normal turgor. Normal color with no rashes, no lesions, and no evidence of cellulitis. MS/ Extremity: Pulses equal, no cyanosis. Neurovascular intact. Full, normal range of motion. Neuro: Awake and alert, GCS 15, oriented to person, place, time, and situation. Cranial nerves II-XII grossly intact. Motor strength 5/5 in all extremities. Sensory grossly intact. Cerebellar exam normal. Normal gait. 17:39 Abdomen/GI: Inspection: distension, that is moderate, Bowel sounds: normal, active, Palpation: soft, moderate abdominal tenderness, in the right upper quadrant, left upper quadrant, right lower quadrant and left lower quadrant, Vital Signs: 16:45 BP 150 / 80; Pulse 100; Resp 14; Temp 98; Pulse Ox 95% ; bp MDM: 16:46 Patient medically screened. gb1 17:39 Differential diagnosis: AAA, appendicitis, bowel obstruction, coronary artery disease, gb1 Cholelithiasis, GI Bleed, pancreatitis, Perf. Duodenal Ulcer, Perf. Gastric Ulcer. Data reviewed: vital signs, nurses notes. ED course: 82-year-old male currently on hospice secondary to Alzheimer's dementia comes for concern of abdominal distention. The patient's at the bedside and she is his medical power of hub borer and she request that no test to be done and no imaging be ordered. I discussed the case with the patient's hospice nurse to make her aware of the patient's 's request as medical power of hub borer. Will make arrangements to discharge the patient back home on hospice and transport him back to the care facility via EMS.. Administered Medications: No medications were administered Disposition Summary: 03/21/23 17:11 Discharge Ordered Notes: Location: Correction gb1 Problem: chronic gb1 Symptoms: are unchanged gb1 Condition: Stable gb1 Diagnosis - Encounter for palliative care gb1 - Abdominal pain, Generalized gb1 Followup: gb1 - With: Private Physician - When: - Reason: Re-evaluation by your physician Discharge Instructions: - Discharge Summary Sheet gb1 - Hospice gb1 Forms: - Medication Reconciliation Form gb1 - Thank You Letter gb1 - Antibiotic Education gb1 - Prescription Opioid Use gb1 - Patient Portal Instructions gb1 - Leadership Thank You Letter gb1 Signatures: Román Abreu, RN RN Esthela Mayer MD MD gb1
[2023-03-21 21:43] VITALS: BP 150/80; TEMP 98; O2SAT 95
== END ==
LOC: ER 16:39
DX: R10.84 Generalized abdominal pain (principal); Z51.5 Encounter for palliative care; G30.9 Alzheimer's disease, unspecified; F02.80 Dementia in other diseases classified elsewhere, unspecified severity, without behavioral disturbance, psychotic disturbance, mood disturbance, and anxiety; Z79.899 Other long term (current) drug therapy; Z66 Do not resuscitate
CPT/HCPCS: 99283